=== PATIENT | male | born 1935 | race Asian ===

== ENCOUNTER 2017-10-21 23:37 | Observation (INO) | payer OTHER ==
--- NOTE | 2017-10-21 23:41 | PDOC ---
History of Present Illness - General Chief Complaint: Lethargy Stated Complaint: FEVER, LETHARGY Time Seen by Provider: 10/21/17 23:41 History Source: Patient Exam Limitations: No Limitations - History of Present Illness Initial Comments: 10/21/17 23:45 This is an 82-year-old male brought in by his family for evaluation of fever and lethargy. Patient is had a fever 2 days. Patient denies any complaints at this time however family states that he is normally active and ambulates without difficulty in the last couple days has been much less active and has been very weak in general. Patient denies any cough, congestion, chest pain, shortness of breath, nausea, vomiting, diarrhea or urinary complaints. Patient' s has a history significant for hypertension high cholesterol and diabetes. Patient sugar this evening was over 200. PAST MEDICAL HISTORY: As per history of present illness PAST SURGICAL HISTORY: no significant history FAMILY HISTORY: no pertinant history SOCIAL HISTORY: Pt lives with family and is retired MEDICATIONS: reviewed ALLERGIES: As per nursing notes Review of Systems General: + fevers or chills, + generalized weakness, no weight loss HEENT: No change in vision. No sore throat,. No ear pain CardioVascular: No chest pain or shortness of breath Respiratory:No cough, or wheezing. Gastrointestinal: no nausea, vomitting, diarrhea or constipation, No rectal bleeding Genitourinary: No dysuria, hematuria, or frequency Musculoskeletal: No joint or muscle pain or swelling Neurologic: No headache, vertigo, dizziness or loss of consciousness Psychiatric: nor depression Skin: No rashes or easy bruising Endocrine: no increased thirst or abnormal weight change Allergic: no skin or latex allergy All other systems reviewed and normal Exam: General: Well-nourished well-developed individual, no acute distress HEENT: Throat: Normal, tonsils normal, no erythema or exudate Neck: Supple, no meningeal signs, no lymphadenopathy Eyes::Pupils equal reactive and round, extraocular motion intact Chest: Nontender to palpation Cardiac: S1-S2 normal, regular rate and rhythm, no murmurs rubs or gallops Respiratory: Lungs clear to auscultation bilateral Abdomen: Soft, nondistended, normal bowel sounds, nontender to palpation diffusely Extremities: Warm, dry, no cyanosis, clubbing, or edema Skin: No rashes Neuro: Alert and oriented x3, CN II - XII intact, nonfocal exam with normal strength, normal sensation, normal reflexes, normal gait, Psych: Normal mood and affect Medical decision making this is a 82-year-old male brought in by his family for evaluation of fever and lethargy. Will obtain a workup including CBC, comp, blood cultures, urine, urine cultures , EKG, chest x-ray, lactic acid, coags We'll reassess and review results of workup 02:20 Patient feels a little better after some fluids and Tylenol and IV antibiotics. Patient's white count was normal there is no left shift however given the fact that he is a diabetic and he already has some renal insufficiency he will be in placed in an observation bed for IV antibiotics. Discussed admission with the hospitalist Jackie Lira NP who was accepted the patient for admission 10/22/17 02:21 Past History - Past Medical History Allergies/Adverse Reactions: Allergies Allergy/AdvReac Type Severity Reaction Status Date / Time levofloxacin [From Levaquin] Allergy Severe Rash Verified 07/01/14 07:27 bacitracin Allergy Verified 10/21/17 23:39 nitrofurantoin Allergy Verified 10/21/17 23:39 [From Macrobid] Home Medications: Ambulatory Orders Bimatoprost [Lumigan] 1 drop OU HS #0 drops 01/09/13 Brimonidine Tartrate [Alphagan 0.2% -] 1 drop OS BID #0 drops 01/09/13 Dorzolamide/Timolol/Pf [Cosopt Pf Eye Drops] 1 each OP BID #0 droperette Doxazosin Mesylate [Cardura] 4 mg PO DAILY #0 tablet 01/09/13 Losartan Potassium [Cozaar -] 100 mg PO HS #0 tablet 01/09/13 Pilocarpine 2% [Pilostat 2% -] 1 drop OU QID #0 drops 01/09/13 Acyclovir [Zovirax -] 400 mg PO BID 06/28/14 Aspirin [Western Aspirin] 81 mg PO DAILY 06/28/14 Glipizide [Glipizide ER] 5 mg PO BID 06/28/14 Saxagliptin HCl [Onglyza] 2.5 mg PO DAILY 06/28/14 Atorvastatin Ca [Lipitor] 10 mg PO MoWeFr@2200 10/21/17 metFORMIN HCL [Glucophage] 500 mg PO BID 10/21/17 Anemia: No Asthma: No Cancer: No Cardiac Disorders: Yes (PPM) CVA: Yes COPD: No CHF: No Dementia: No Diabetes: Yes GI Disorders: Yes (REFLUX) Disorders: Yes (BPH) HTN: Yes Hypercholesterolemia: Yes Seizures: No Thyroid Disease: No - Surgical History Abdominal Surgery: Yes (colon resection, hemicolectomy) Appendectomy: No Cholecystectomy: Yes Neurologic Surgery: No Orthopedic Surgery: Yes (RIGHT LEG - PLATE S/P FRACTURE 2000) - Immunization History Td Vaccination: Yes - Suicide/Smoking/Psychosocial Hx Smoking Status: No Smoking History: Never smoked Have you smoked in the past 12 months: No Number of Cigarettes Smoked Daily: 0 Hx Alcohol Use: No Drug/Substance Use Hx: No Substance Use Type: None Hx Substance Use Treatment: No ED Treatment Course - LABORATORY CBC & Chemistry Diagram: 10/22/17 00:55 10/22/17 00:55 *DC/Admit/Observation/Transfer Diagnosis at time of Disposition: UTI (urinary tract infection) - Discharge Dispostion Condition at time of disposition: Stable Decision to Admit order: Yes - Referrals Referrals: Rd Preciado MD [Primary Care Provider] - - Patient Instructions - Post Discharge Activity
[2017-10-21] MEDS ORDERED: SODIUM CHLORIDE 1,000 ML IV STA (23:48)
[2017-10-22 01:36] LABS: URINE APPEARANCE CLOUDY; URINE BILIRUBIN NEGATIVE (<2.0 mg/dL); URINE BLOOD 2+ (NEGATIVE); URINE COLOR YELLOW; URINE GLUCOSE (UA) 1+ (NEGATIVE); URINE KETONE TRACE (NEGATIVE); URINE NITRITE POSITIVE (NEGATIVE); URINE UROBILINOGEN NEGATIVE mg/dL (0.2-1.0)
[2017-10-22 01:41] LABS: URINE LEUK ESTERASE 2+ (NEGATIVE); URINE PROTEIN 1+ (NEGATIVE)
[2017-10-22 01:46] LABS: BASO % 0.3 % (0-2.0); EOS % 0.5 % (0-4.5); HEMATOCRIT 34.3 % (35.4-49); HEMOGLOBIN 11.4 GM/dL (11.7-16.9); LYMPH % 12.4 % (8-40); MCH 28.1 pg (25.7-33.7); MCHC 33.2 g/dl (32.0-35.9); MEAN CELL VOLUME 84.7 fl (80-96); MEAN PLT VOLUME 9.5 fl (7.5-11.1); MONO % 8.8 % (3.8-10.2); PLATELET COUNT 137 K/MM3 (134-434); RBC 4.05 M/mm3 (4.00-5.60); RDW 14.7 % (11.9-15.9); WHITE BLOOD COUNT 9.5 K/mm3 (4.0-10.0)
[2017-10-22 01:49] LABS: VENOUS PC02 37.4 mmHg (38-52); VENOUS PH 7.43 (7.32-7.42); VENOUS PO2 54.2 mmHg (28-48)
[2017-10-22] MEDS ORDERED: CEFTRIAXONE 1,000 MG in DEXTROSE 5%-WATER - 50 ML IVPB ONE (02:01)
[2017-10-22 02:03] LABS: INR 1.04 (0.82-1.09); PROTHROMBIN TIME (PATIENT) 11.8 SEC (9.7-13.0)
[2017-10-22 02:04] LABS: ALBUMIN 3.1 g/dl (3.4-5.0); ANION GAP 8 (8-16); BILIRUBIN,TOTAL 0.7 mg/dL (0.2-1.0); BLOOD UREA NITROGEN 28 mg/dL (7-18); CALCIUM 8.5 mg/dL (8.5-10.1); CHLORIDE 103 mmol/L (98-107); CO2 26 mmol/L (21-32); CREATININE 1.7 mg/dL (0.7-1.3); GLUCOSE,RANDOM 170 mg/dL (74-106); POTASSIUM 3.7 mmol/L (3.5-5.1); SGOT/AST 14 U/L (15-37); SGPT/ALT 20 U/L (12-78); SODIUM 137 mmol/L (136-145); TOT PROT 6.6 g/dl (6.4-8.2)
[2017-10-22 02:05] LABS: ALK PHOS 67 U/L (45-117)
[2017-10-22] MEDS ORDERED: cefTRIAXone SODIUM 1 GM VIAL ONE (02:10)
[2017-10-22 02:11] LABS: EPI CELLS RARE /HPF (FEW); URINE BACTERIA FEW /hpf (NONE SEEN); URINE MUCUS MODERATE
[2017-10-22] MEDS ORDERED: DEXTROSE 5%-0.45% SALINE 1,000 ML IV SCH (02:30)
[2017-10-22] MEDS ORDERED: ACETAMINOPHEN 325 MG TABLET (FP) PO PRN (02:33)
[2017-10-22 03:36] VITALS: BMI 19.8
[2017-10-22] MEDS: INSULIN SLIDING SCALE (NOVOLOG) 1 VIAL SQ SCH ×4 (06:48→21:56)
[2017-10-22 08:42] LABS: ANION GAP 7 (8-16); BLOOD UREA NITROGEN 24 mg/dl (7-18); CALCIUM 8.4 mg/dl (8.4-10.2); CHLORIDE 105 mmol/L (98-107); CO2 24 mmol/L (22-28); CREATININE 1.5 mg/dl (0.6-1.3); GLUCOSE,RANDOM 87 mg/dl (74-106); POTASSIUM 3.6 mmol/L (3.5-5.1); SODIUM 136 mmol/L (136-145)
[2017-10-22 08:49] LABS: BASO % 0.2 % (0-2.0); EOS % 1.1 % (0-4.5); HEMATOCRIT 33.6 % (35.4-49); HEMOGLOBIN 11.2 GM/dl (11.7-16.9); LYMPH % 12.1 % (8-40); MCH 28.3 pg (25.7-33.7); MCHC 33.2 g/dl (32.0-35.9); MEAN CELL VOLUME 85.2 fl (80-96); MEAN PLT VOLUME 9.2 fl (7.5-11.1); MONO % 8.9 % (3.8-10.2); NEUT % 77.7 % (42.8-82.8); PLATELET COUNT 137 K/MM3 (134-434); RBC 3.95 M/mm3 (4.00-5.60); RDW 13.9 % (11.9-15.9); WHITE BLOOD COUNT 10.3 K/mm3 (4.0-10.8)
[2017-10-22] MEDS: ACYCLOVIR 400 MG TABLET PO SCH ×2 (11:23→21:49)
[2017-10-22] MEDS: ASPIRIN COATED 81 MG TABLET.EC PO SCH (11:23)
[2017-10-22] MEDS: HEPARIN NA (PORCINE) 5,000 UNITS/ML 1ML VIAL SQ SCH ×2 (11:33→21:49)
[2017-10-22] MEDS: PILOCARPINE 2% OPHTHALMIC SOLUTION 15 ML BOTTLE OU SCH ×4 (11:33→21:48)
[2017-10-22] MEDS: BRIMONIDINE TARTRATE 0.2% OPHTHALMIC 5 ML BOTTLE OS SCH ×2 (11:33→21:48)
[2017-10-22] MEDS: DOXAZOSIN MESYLATE 4 MG TABLET PO SCH (11:35)
--- NOTE | 2017-10-22 11:44 | HP ---
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 The patient's response to all questions was "I am not worrying about it". Was unable to provide any details of the difficulty ambulating, however he does report it has resolved. ER course was notable for: (1) Temp 100.6, pulse 94, BP 110/54, resp 16, O2 95% on RA (2) Chest X-ray with no acute pathology (3) UA + for UTI Recent Travel: denies PAST MEDICAL HISTORY: as above PAST SURGICAL HISTORY: "So many surgeries I can't think about them" Social History: Smoking: denies Alcohol: denies Drugs: denies Family History: Allergies levofloxacin [From Levaquin] Allergy (Severe, Verified 07/01/14 07:27) Rash bacitracin Allergy (Verified 10/21/17 23:39) nitrofurantoin [From Macrobid] Allergy (Verified 10/21/17 23:39) HOME MEDICATIONS: Home Medications Medication Instructions Recorded Bimatoprost [Lumigan] 1 drop OU HS #0 drops 01/09/13 Brimonidine Tartrate [Alphagan 1 drop OS BID #0 drops 01/09/13 0.2% -] Dorzolamide/Timolol/Pf [Cosopt Pf 1 each OP BID #0 droperette 01/09/13 Eye Drops] Doxazosin Mesylate [Cardura] 4 mg PO DAILY #0 tablet 01/09/13 Losartan Potassium [Cozaar -] 100 mg PO HS #0 tablet 01/09/13 Pilocarpine 2% [Pilostat 2% -] 1 drop OU QID #0 drops 01/09/13 Acyclovir [Zovirax -] 400 mg PO BID 06/28/14 Glipizide [Glipizide ER] 5 mg PO BID 06/28/14 Saxagliptin HCl [Onglyza] 2.5 mg PO DAILY 06/28/14 Atorvastatin Ca [Lipitor] 10 mg PO MoWeFr@2200 10/21/17 metFORMIN HCL [Glucophage] 500 mg PO BID 10/21/17 Aspirin [ASA -] 81 mg PO DAILY 10/22/17 Tamsulosin HCl [Flomax] 0.4 mg PO DAILY 10/22/17 REVIEW OF SYSTEMS: Patient gave limited ROS NEUROLOGIC: Was unable to ambulate because "my legs hurt and I couldn't feel them". Symptoms have resolved PHYSICAL EXAMINATION Vital Signs - 24 hr 10/21/17 10/22/17 10/22/17 23:46 02:57 04:10 Temperature 100.6 F H 98.6 F 98 F Pulse Rate 94 H 81 Pulse Rate [ 75 Radial] Respiratory 16 16 18 Rate Blood Pressure 110/54 124/53 Blood Pressure 111/56 [Arm] O2 Sat by Pulse 95 97 97 Oximetry (%) 10/22/17 10/22/17 10/22/17 05:00 07:04 08:33 Temperature 97.7 F Pulse Rate 92 H Pulse Rate [ Radial] Respiratory 18 Rate Blood Pressure 128/46 Blood Pressure [Arm] O2 Sat by Pulse 98 98 Oximetry (%) GENERAL: Awake, alert, in no acute distress. HEAD: Normal with no signs of trauma. Patient refused exam stating "when my gets here, come back" Laboratory Results - last 24 hr 10/22/17 10/22/17 10/22/17 00:40 00:55 00:55 WBC 9.5 RBC 4.05 Hgb 11.4 L Hct 34.3 L MCV 84.7 MCH 28.1 MCHC 33.2 RDW 14.7 Plt Count 137 D MPV 9.5 D Absolute Neuts (auto) 7.4 Neutrophils % 78.0 Lymphocytes % 12.4 D Monocytes % 8.8 Eosinophils % 0.5 Basophils % 0.3 Nucleated RBC % 0 PT with INR 11.80 INR 1.04 VBG pH POC VBG pCO2 POC VBG pO2 Mixed VBG HCO3 Sodium Potassium Chloride Carbon Dioxide Anion Gap BUN Creatinine Creat Clearance w eGFR POC Glucometer Random Glucose Lactic Acid Calcium Total Bilirubin AST ALT Alkaline Phosphatase Creatine Kinase Troponin I Total Protein Albumin Urine Color Yellow Urine Appearance Cloudy Urine pH 5.0 Ur Specific [place] 1.012 Urine Protein 1+ H Urine Glucose (UA) 1+ H Urine Ketones Trace H Urine Blood 2+ H Urine Nitrite Positive Urine Bilirubin Negative Urine Urobilinogen Negative Ur Leukocyte Esterase 2+ H Urine WBC (Auto) 227 Urine RBC (Auto) 5 Ur Epithelial Cells Rare Urine Bacteria Few Urine Mucus Moderate 10/22/17 10/22/17 10/22/17 00:55 00:55 00:55 WBC RBC Hgb Hct MCV MCH MCHC RDW Plt Count MPV Absolute Neuts (auto) Neutrophils % Lymphocytes % Monocytes % Eosinophils % Basophils % Nucleated RBC % PT with INR INR VBG pH 7.43 H POC VBG pCO2 37.4 L POC VBG pO2 54.2 H Mixed VBG HCO3 24.2 Sodium 137 Potassium 3.7 Chloride 103 Carbon Dioxide 26 Anion Gap 8 BUN 28 H D Creatinine 1.7 H D Creat Clearance w eGFR 38.88 POC Glucometer Random Glucose 170 H D Lactic Acid 1.6 Calcium 8.5 Total Bilirubin 0.7 D AST 14 L D ALT 20 D Alkaline Phosphatase 67 D Creatine Kinase Troponin I Total Protein 6.6 Albumin 3.1 L Urine Color Urine Appearance Urine pH Ur Specific [place] Urine Protein Urine Glucose (UA) Urine Ketones Urine Blood Urine Nitrite Urine Bilirubin Urine Urobilinogen Ur Leukocyte Esterase Urine WBC (Auto) Urine RBC (Auto) Ur Epithelial Cells Urine Bacteria Urine Mucus 10/22/17 10/22/17 10/22/17 00:55 06:15 07:15 WBC 10.3 RBC 3.95 L Hgb 11.2 L Hct 33.6 L MCV 85.2 MCH 28.3 MCHC 33.2 RDW 13.9 Plt Count 137 MPV 9.2 Absolute Neuts (auto) 8.1 Neutrophils % 77.7 Lymphocytes % 12.1 Monocytes % 8.9 Eosinophils % 1.1 Basophils % 0.2 Nucleated RBC % PT with INR INR VBG pH POC VBG pCO2 POC VBG pO2 Mixed VBG HCO3 Sodium Potassium Chloride Carbon Dioxide Anion Gap BUN Creatinine Creat Clearance w eGFR POC Glucometer 88 Random Glucose Lactic Acid Calcium Total Bilirubin AST ALT Alkaline Phosphatase Creatine Kinase 80 Troponin I < 0.02 Total Protein Albumin Urine Color Urine Appearance Urine pH Ur Specific [place] Urine Protein Urine Glucose (UA) Urine Ketones Urine Blood Urine Nitrite Urine Bilirubin Urine Urobilinogen Ur Leukocyte Esterase Urine WBC (Auto) Urine RBC (Auto) Ur Epithelial Cells Urine Bacteria Urine Mucus 10/22/17 07:15 WBC RBC Hgb Hct MCV MCH MCHC RDW Plt Count MPV Absolute Neuts (auto) Neutrophils % Lymphocytes % Monocytes % Eosinophils % Basophils % Nucleated RBC % PT with INR INR VBG pH POC VBG pCO2 POC VBG pO2 Mixed VBG HCO3 Sodium 136 Potassium 3.6 Chloride 105 Carbon Dioxide 24 Anion Gap 7 L BUN 24 H Creatinine 1.5 H Creat Clearance w eGFR POC Glucometer Random Glucose 87 Lactic Acid Calcium 8.4 Total Bilirubin AST ALT Alkaline Phosphatase Creatine Kinase Troponin I Total Protein Albumin Urine Color Urine Appearance Urine pH Ur Specific [place] Urine Protein Urine Glucose (UA) Urine Ketones Urine Blood Urine Nitrite Urine Bilirubin Urine Urobilinogen Ur Leukocyte Esterase Urine WBC (Auto) Urine RBC (Auto) Ur Epithelial Cells Urine Bacteria Urine Mucus Assessment: This is an 82 year old male with PMHx of CAD, 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 Plan: 1) Sepsis 2/2 UTI - Continue Ceftriaxone - Follow cultures - Monitor for fever 2) Difficulty ambulating - Weakness 2/2 sepsis? - F/u PT consult, patient denies any weakness now stating symptoms have resolved 3) CHARLY - 2/2 UTI? - F/u kidney ultrasound to r/o obstruction - Continue to trend Cr - Hold ARB until kidney function improves 4) CAD - Continue home medications 5) DM - BGM ACHS - ISS ACHS 6) F/E/N: - Monitor electrolytes - Diabetic, sodium controlled diet 7) Prophylaxis: - SCDs bilaterally - PT evaluation 8) Dispo: - Once urine culture results CODE STATUS: FULL CODE Visit type - Emergency Visit Emergency Visit: Yes ED Registration Date: 10/22/17 Care time: The patient presented to the Emergency Department on the above date and was hospitalized for further evaluation of their emergent condition. - New Patient This patient is new to me today: Yes Date on this admission: 10/22/17 - Critical Care Critical Care patient: No Hospitalist Screening - Colonoscopy Questionnaire Colonoscopy Questionnaire: Colonoscopy Questionnaire - Patient: 50 - 75 years old and never had a screening colonoscopy: Unknown History of colon or rectal polyps, or CA: Unknown History of IBD, Crohn's disease or UC: Unknown History of abdominal radiation therapy as a child: Unknown - Relative: 1 with colon or rectal CA, or polyps at age 60 or younger: Unknown Colon or rectal CA diagnosed at age 45 or younger: Unknown Multiple relatives with colon or rectal CA: Unknown - Outcome: Screening Result: Negative Screen
[2017-10-22] MEDS ORDERED: PT OWN MED DRAWER 7, Y5N ONE ×3 (12:28→21:36)
--- NOTE | 2017-10-22 14:45 | EKG ---
Test Reason : Blood Pressure : / mmHG Vent. Rate : 081 BPM Atrial Rate : 081 BPM P-R Int : 110 ms QRS Dur : 174 ms QT Int : 444 ms P-R-T Axes : 066 -85 089 degrees QTc Int : 515 ms Atrial-sensed ventricular-paced rhythm ABNORMAL ECG WHEN COMPARED WITH ECG OF 30-JAN-2016 12:22, VENT. RATE HAS INCREASED BY 8 BPM Confirmed by MD Myron, Jack ([id number]) on 10/22/2017 2:44:56 PM Referred By: MD SARGENT Confirmed By:Jack Sanches MD
[2017-10-22] MEDS ORDERED: INSULIN (NOVOLOG) ASPART 100 UNITS/ML 10ML VIAL ONE (16:04)
[2017-10-22] MEDS: LATANOPROST 0.005% OPHTH SOLN 2.5ML BOTTLE OU SCH (21:49)
[2017-10-22] MEDS ORDERED: LOSARTAN POTASSIUM 50 MG TABLET (FP) PO SCH (22:00)
[2017-10-23] MEDS: INSULIN SLIDING SCALE (NOVOLOG) 1 VIAL SQ SCH ×4 (07:04→21:46)
[2017-10-23] MEDS ORDERED: PT OWN MED DRAWER 7, Y5N ONE ×8 (09:15→21:39)
[2017-10-23 09:23] LABS: ANION GAP 8 (8-16); BLOOD UREA NITROGEN 20 mg/dl (7-18); CALCIUM 8.7 mg/dl (8.4-10.2); CHLORIDE 103 mmol/L (98-107); CO2 25 mmol/L (22-28); CREATININE 1.6 mg/dl (0.6-1.3); GLUCOSE,RANDOM 99 mg/dl (74-106); MAGNESIUM 1.5 mg/dL (1.8-2.4); PHOSPHOROUS 2.8 mg/dl (2.5-4.6); POTASSIUM 3.7 mmol/L (3.5-5.1); SODIUM 136 mmol/L (136-145)
[2017-10-23] MEDS: HEPARIN NA (PORCINE) 5,000 UNITS/ML 1ML VIAL SQ SCH ×2 (09:25→21:23)
[2017-10-23] MEDS: ASPIRIN COATED 81 MG TABLET.EC PO SCH (09:25)
[2017-10-23] MEDS: CEFTRIAXONE 1 G/50 ML PREMIX 50 ML IVPB SCH (09:25)
[2017-10-23] MEDS: PILOCARPINE 2% OPHTHALMIC SOLUTION 15 ML BOTTLE OU SCH ×4 (09:26→21:22)
[2017-10-23] MEDS: BRIMONIDINE TARTRATE 0.2% OPHTHALMIC 5 ML BOTTLE OS SCH ×2 (09:27→21:21)
[2017-10-23] MEDS: ACYCLOVIR 400 MG TABLET PO SCH ×2 (09:28→21:23)
[2017-10-23] MEDS: DOXAZOSIN MESYLATE 4 MG TABLET PO SCH (09:29)
[2017-10-23] MEDS ORDERED: MAGNESIUM OXIDE 400 MG TABLET (FP) PO ONE (10:30)
--- NOTE | 2017-10-23 12:50 | PN ---
Progress Note (short form) - Note Progress Note: Subjective: The patient was seen and examined at the bedside, he has no complaints at this time. Current Medications Generic Name Dose Route Start Last Admin Trade Name Parvin PRN Reason Stop Dose Admin Acetaminophen 650 mg 10/22/17 02:33 Tylenol - PO Q6H PRN FEVER Acyclovir 400 mg 10/22/17 10:00 10/23/17 09:28 Zovirax - PO 400 mg BID REN Administration Aspirin 81 mg 10/22/17 10:00 10/23/17 09:25 Ecotrin - PO 81 mg DAILY REN Administration Atorvastatin Calcium 10 mg 10/24/17 22:00 Lipitor - PO MoWeFr@2200 REN Brimonidine Tartrate 1 drop 10/22/17 10:00 10/23/17 09:27 Alphagan 0.2% - OS 1 drop BID REN Administration Doxazosin Mesylate 4 mg 10/22/17 10:00 10/23/17 09:29 Cardura - PO 4 mg DAILY REN Administration Heparin Sodium (Porcine) 5,000 unit 10/22/17 10:00 10/23/17 09:25 Heparin - SQ 5,000 unit BID REN Administration Ceftriaxone Sodium 50 mls @ 100 mls/hr 10/23/17 10:00 10/23/17 09:25 Ceftriaxone 1 Gm-D5w Bag IVPB 100 mls/hr DAILY REN Administration Protocol Insulin Aspart 1 vial 10/22/17 07:00 10/23/17 12:20 Novolog Vial Sliding Scale - SQ 2 units ACHS REN Administration Protocol Latanoprost 1 drop 10/22/17 22:00 10/22/17 21:49 Xalatan 0.005% Eye Drops - OU 1 drop HS REN Administration Losartan Potassium 100 mg 10/22/17 22:00 Cozaar - PO HS REN Pilocarpine HCl 1 drop 10/22/17 10:00 10/23/17 09:26 Pilostat 2% - OU 1 drop QID REN Administration Objective: Vital Signs Period Temp Pulse Resp BP Sys/Stevens Pulse Ox Last 24 Hr 97.9 F-99.4 F 75-90 17-18 128-148/46-64 97-100 Physical Exam: CBCD WBC 10.3 K/mm3 (4.0-10.8) 10/22/17 07:15 RBC 3.95 M/mm3 (4.00-5.60) L 10/22/17 07:15 Hgb 11.2 GM/dl (11.7-16.9) L 10/22/17 07:15 Hct 33.6 % (35.4-49) L 10/22/17 07:15 MCV 85.2 fl (80-96) 10/22/17 07:15 MCHC 33.2 g/dl (32.0-35.9) 10/22/17 07:15 RDW 13.9 % (11.9-15.9) 10/22/17 07:15 Plt Count 137 K/MM3 (134-434) 10/22/17 07:15 MPV 9.2 fl (7.5-11.1) 10/22/17 07:15 CMP Sodium 136 mmol/L (136-145) 10/23/17 06:00 Potassium 3.7 mmol/L (3.5-5.1) 10/23/17 06:00 Chloride 103 mmol/L (98-107) 10/23/17 06:00 Carbon Dioxide 25 mmol/L (22-28) 10/23/17 06:00 Anion Gap 8 (8-16) 10/23/17 06:00 BUN 20 mg/dl (7-18) H 10/23/17 06:00 Creatinine 1.6 mg/dl (0.6-1.3) H 10/23/17 06:00 Creat Clearance w eGFR 38.88 (>60) 10/22/17 00:55 Random Glucose 99 mg/dl (74-106) 10/23/17 06:00 Calcium 8.7 mg/dl (8.4-10.2) 10/23/17 06:00 Total Bilirubin 0.7 mg/dL (0.2-1.0) D 10/22/17 00:55 AST 14 U/L (15-37) L D 10/22/17 00:55 ALT 20 U/L (12-78) D 10/22/17 00:55 Alkaline Phosphatase 67 U/L (45-117) D 10/22/17 00:55 Total Protein 6.6 g/dl (6.4-8.2) 10/22/17 00:55 Albumin 3.1 g/dl (3.4-5.0) L 10/22/17 00:55 CARDIAC ENZYMES Creatine Kinase 80 IU/L (39-308) 10/22/17 00:55 Troponin I < 0.02 ng/ml (0.00-0.05) 10/22/17 00:55 Microbiology 10/22/17 00:40 Urine - Urine Clean Catch Urine Culture - Preliminary Lactose Fermenting Neg Bacilli 10/22/17 00:05 Blood - Peripheral Venous Blood Culture - Preliminary NO GROWTH OBTAINED AFTER 24 HOURS, INCUBATION TO CONTINUE FOR 4 DAYS. 10/22/17 00:05 Blood - Peripheral Venous Blood Culture - Preliminary NO GROWTH OBTAINED AFTER 24 HOURS, INCUBATION TO CONTINUE FOR 4 DAYS. 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 Plan: 1) Sepsis 2/2 UTI - Continue Ceftriaxone - Awaiting final c/s - Monitor for fever 2) Difficulty ambulating - Weakness 2/2 sepsis? - Resolved - Patient seen ambulating around his room with a walker 3) CHARLY on possible CKD? - Kidney ultrasound: b/l mildly atrophic kidneys with caliectasis. No donnell hydronephrosis - Continue to trend Cr - Hold ARB until kidney function improves - F/u nephrology consult 4) CAD - Continue home medications 5) DM - BGM ACHS - ISS ACHS 6) F/E/N: - Monitor electrolytes - Diabetic, sodium controlled diet 7) Prophylaxis: - SCDs bilaterally - PT evaluation 8) Dispo: - Once urine culture results CODE STATUS: FULL CODE Visit type - Emergency Visit Emergency Visit: Yes ED Registration Date: 10/22/17 Care time: The patient presented to the Emergency Department on the above date and was hospitalized for further evaluation of their emergent condition. - New Patient This patient is new to me today: No - Critical Care Critical Care patient: No
--- NOTE | 2017-10-23 12:50 | CONSULT ---
Consult Referred by:: Nephrology Corky Davidson/Manav Reason for Consultation:: Abnormal kidney functions - History of Present Illness History of Present Illness: This is an 82-year-old male brought in by his family for evaluation of fever and lethargy. Patient is had a fever 2 days. Patient denies any cough, congestion, chest pain, shortness of breath, nausea, vomiting, diarrhea or urinary complaints. Patient's has a history significant for hypertension high cholesterol and diabetes. He also has h/o ICH. - History Source History Provided By: Patient - Past Medical History [employer]IGH [employer]: Yes: Other (ICH) Cardio/Vascular: Yes: HTN Renal/: Yes: Renal Inusuff, BPH, UTI Endocrine: Yes: Diabetes Mellitus - Alcohol/Substance Use Hx Alcohol Use: No - Smoking History Smoking history: Never smoked Have you smoked in the past 12 months: No Aproximately how many cigarettes per day: 0 - Social History ADL: Family Assistance History of Recent Travel: No Home Medications - Allergies Allergies/Adverse Reactions: Allergies Allergy/AdvReac Type Severity Reaction Status Date / Time levofloxacin [From Levaquin] Allergy Severe Rash Verified 07/01/14 07:27 bacitracin Allergy Verified 10/21/17 23:39 nitrofurantoin Allergy Verified 10/21/17 23:39 [From Macrobid] - Home Medications Home Medications: Ambulatory Orders Bimatoprost [Lumigan] 1 drop OU HS #0 drops 01/09/13 Brimonidine Tartrate [Alphagan 0.2% -] 1 drop OS BID #0 drops 01/09/13 Dorzolamide/Timolol/Pf [Cosopt Pf Eye Drops] 1 each OP BID #0 droperette Doxazosin Mesylate [Cardura] 4 mg PO DAILY #0 tablet 01/09/13 Losartan Potassium [Cozaar -] 100 mg PO HS #0 tablet 01/09/13 [place]oc[place] 2% [Pilostat 2% -] 1 drop OU QID #0 drops 01/09/13 Acyclovir [Zovirax -] 400 mg PO BID 06/28/14 Glipizide [Glipizide ER] 5 mg PO BID 06/28/14 Saxagliptin HCl [Onglyza] 2.5 mg PO DAILY 06/28/14 Atorvastatin Ca [Lipitor] 10 mg PO MoWeFr@2200 10/21/17 metFORMIN HCL [Glucophage] 500 mg PO BID 10/21/17 Aspirin [ASA -] 81 mg PO DAILY 10/22/17 Tamsulosin HCl [Flomax] 0.4 mg PO DAILY 10/22/17 Review of Systems - Review of Systems Constitutional: reports: No Symptoms, Fever, Loss of Appetite, Malaise HENT: denies: Difficult Swallowing Cardiovascular: denies: Chest Pain, Palpitations, Shortness of Breath Respiratory: denies: Cough, SOB on Exertion Gastrointestinal: denies: Melena Genitourinary: denies: Dysuria, Flank Pain, Frequency Musculoskeletal: reports: Back Pain Neurological: reports: Confusion, Unsteady Gait, Weakness. denies: No Symptoms Physical Exam Vital Signs: Vital Signs Temperature 97.9 F 10/23/17 09:13 Pulse Rate 77 10/23/17 09:13 Respiratory Rate 17 10/23/17 09:13 Blood Pressure 136/46 10/23/17 09:13 O2 Sat by Pulse Oximetry (%) 100 10/23/17 09:13 Constitutional: Yes: No Distress, Anxious Eyes: Yes: Conjunctiva Clear HENT: Yes: Normocephalic Neck: Yes: Trachea Midline Cardiovascular: Yes: S1, S2 Respiratory: Yes: CTA Bilaterally, Diminished Gastrointestinal: Yes: Normal Bowel Sounds, Soft Renal/: No: CVA Tenderness - Left, CVA Tenderness - Right Musculoskeletal: Yes: Back Pain, Muscle Weakness Extremities: No: Calf Tenderness Neurological: Yes: Alert, Oriented, Unsteady Gait, Weakness Labs: CBC, BMP 10/22/17 07:15 10/23/17 06:00 Problem List - Problems (1) UTI (urinary tract infection) Code(s): N39.0 - URINARY TRACT INFECTION, SITE NOT SPECIFIED Qualifiers: (2) Altered mental status Code(s): R41.82 - ALTERED MENTAL STATUS, UNSPECIFIED Qualifiers: Altered mental status type: unspecified Qualified Code(s): R41.82 - Altered mental status, unspecified (3) Anemia Code(s): D64.9 - ANEMIA, UNSPECIFIED (4) CKD (chronic kidney disease) Code(s): N18.9 - CHRONIC KIDNEY DISEASE, UNSPECIFIED (5) Hypertension Code(s): I10 - ESSENTIAL (PRIMARY) HYPERTENSION (6) Intracranial hemorrhage Code(s): I62.9 - NONTRAUMATIC INTRACRANIAL HEMORRHAGE, UNSPECIFIED Assessment/Plan This is an 82-year-old male brought in by his family for evaluation of fever and lethargy. The patient being treated for acute UTI. 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 Concur with the IV hydration and IV antibiotics. Will monitor the renal functions with you. No specific intervention warranted at this time. Thank you. Will follow with you. Miri Davidson MD
[2017-10-23] MEDS: LATANOPROST 0.005% OPHTH SOLN 2.5ML BOTTLE OU SCH (21:22)
[2017-10-24] MEDS: INSULIN SLIDING SCALE (NOVOLOG) 1 VIAL SQ SCH ×2 (06:15→11:12)
[2017-10-24] MEDS ORDERED: PT OWN MED DRAWER 7, Y5N ONE (09:30)
[2017-10-24] MEDS: CEFTRIAXONE 1 G/50 ML PREMIX 50 ML IVPB SCH (09:36)
[2017-10-24] MEDS: HEPARIN NA (PORCINE) 5,000 UNITS/ML 1ML VIAL SQ SCH (09:36)
[2017-10-24] MEDS: ACYCLOVIR 400 MG TABLET PO SCH (09:36)
[2017-10-24] MEDS: DOXAZOSIN MESYLATE 4 MG TABLET PO SCH (09:36)
[2017-10-24] MEDS: ASPIRIN COATED 81 MG TABLET.EC PO SCH (09:36)
[2017-10-24 09:39] LABS: ALBUMIN 2.9 g/dl (3.5-5.0); ALK PHOS 61 U/L (32-92); ANION GAP 7 (8-16); BILIRUBIN,TOTAL 0.8 mg/dl (0.2-1.0); BLOOD UREA NITROGEN 16 mg/dl (7-18); CALCIUM 8.9 mg/dl (8.4-10.2); CHLORIDE 104 mmol/L (98-107); CO2 25 mmol/L (22-28); CREATININE 1.4 mg/dl (0.6-1.3); GLUCOSE,RANDOM 145 mg/dl (74-106); MAGNESIUM 1.6 mg/dL (1.8-2.4); POTASSIUM 3.5 mmol/L (3.5-5.1); SGOT/AST 18 U/L (10-42); SGPT/ALT 15 U/L (10-40); SODIUM 136 mmol/L (136-145); TOT PROT 6.3 g/dl (6.4-8.3)
[2017-10-24] MEDS: BRIMONIDINE TARTRATE 0.2% OPHTHALMIC 5 ML BOTTLE OS SCH (09:56)
[2017-10-24] MEDS: PILOCARPINE 2% OPHTHALMIC SOLUTION 15 ML BOTTLE OU SCH ×2 (09:56→14:46)
[2017-10-24] MEDS ORDERED: MAGNESIUM 1GM/D5W 100ML - 100 ML IVPB IVPB ONE (10:04)
--- NOTE | 2017-10-24 10:40 | DS ---
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 The patient's response to all questions was "I am not worrying about it". Was unable to provide any details of the difficulty ambulating, however he does report it has resolved. ER course was notable for: (1) Temp 100.6, pulse 94, BP 110/54, resp 16, O2 95% on RA (2) Chest X-ray with no acute pathology (3) UA + for UTI Vital Signs Period Temp Pulse Resp BP Sys/Stevens Pulse Ox Last 24 Hr 97.7 F-99.2 F 74-89 17-20 125-169/56-70 96-99 PHYSICAL EXAM GENERAL: The patient is awake, alert, and fully oriented, in no acute distress. HEAD: Normal with no signs of trauma. EYES: PERRL, extraocular movements intact, sclera anicteric, conjunctiva clear. ENT: Ears normal, nares patent, oropharynx clear without exudates, moist mucous membranes. NECK: Trachea midline, full range of motion, supple. LUNGS: Breath sounds equal, clear to auscultation bilaterally, no wheezes, no crackles, no accessory muscle use. HEART: Regular rate and rhythm, S1, S2 without murmur, rub or gallop. ABDOMEN: Soft, nontender, nondistended, normoactive bowel sounds, no guarding, no rebound, no hepatosplenomegaly, no masses. EXTREMITIES: 2+ pulses, warm, well-perfused, no edema. NEUROLOGICAL: Cranial nerves II through XII grossly intact. Normal speech, gait not observed. PSYCH: Normal mood, normal affect. SKIN: Warm, dry, normal turgor, no rashes or lesions noted. LABS Laboratory Results - last 24 hr 10/23/17 10/23/17 10/23/17 11:27 16:57 21:06 Sodium Potassium Chloride Carbon Dioxide Anion Gap BUN Creatinine Creat Clearance w eGFR POC Glucometer 188 183 168 Random Glucose Calcium Magnesium Total Bilirubin AST ALT Alkaline Phosphatase Total Protein Albumin 10/24/17 10/24/17 06:01 07:50 Sodium 136 Potassium 3.5 Chloride 104 Carbon Dioxide 25 Anion Gap 7 L BUN 16 Creatinine 1.4 H Creat Clearance w eGFR 48.64 POC Glucometer 122 Random Glucose 145 H D Calcium 8.9 Magnesium 1.6 L Total Bilirubin 0.8 AST 18 ALT 15 Alkaline Phosphatase 61 Total Protein 6.3 L Albumin 2.9 L Microbiology 10/22/17 00:40 Urine - Urine Clean Catch Urine Culture - Final Klebsiella Pneumoniae 10/22/17 00:05 Blood - Peripheral Venous Blood Culture - Preliminary NO GROWTH OBTAINED AFTER 48 HOURS, INCUBATION TO CONTINUE FOR 3 DAYS. 10/22/17 00:05 Blood - Peripheral Venous Blood Culture - Preliminary NO GROWTH OBTAINED AFTER 48 HOURS, INCUBATION TO CONTINUE FOR 3 DAYS. IMAGING ULTRASOUND OF THE KIDNEY RENAL ULTRASOUND: BILATERAL MILDLY ATROPHIC KIDNEYS WITH CALICTASIS, NO LISA HYDRONEPHROSIS cHEST X-RAY NO ACUTE PATHOLOGY HOSPITAL COURSE: patient was admitted to the emergency department to observation. Sepsis was ruled out. Patient was noted to have a urinary tract infection and treated with rocephin throughout admission, urine culture is notable as above. No leukocytosis patient is afebrile. patient ambulated with physical therapy, patient will receive VNS. patient ambulated in room with walker. patient was noted to have acute on chronic renal failure a secondary to hypovolemia, creatinine return close to baseline upon IV hydration. Dr. Mitchell diabetologist was consulted and followed patient throughout admission. Ultrasound of kidney and bladder was notable as above. Patient has a past medical history of coronary artery disease home medications was continued. PLAN - discharge home with visiting nurse services - ceftin 250mg (renal dose) daily for 7 days Date of Admission:10/22/17 Date of Discharge: 10/24/17 Minutes to complete discharge: 45 Discharge Summary Reason For Visit: UROSEPSIS Current Active Problems UTI (urinary tract infection) (Acute) Condition: Stable - Instructions Referrals: Rd Preciado MD [Primary Care Provider] - 1 Week (repeat urinalysis and urine culture ) Disposition: HOME - Home Medications Comprehensive Discharge Medication List: Ambulatory Orders Bimatoprost [Lumigan] 1 drop OU HS #0 drops 01/09/13 Brimonidine Tartrate [Alphagan 0.2% -] 1 drop OS BID #0 drops 01/09/13 Dorzolamide/Timolol/Pf [Cosopt Pf Eye Drops] 1 each OP BID #0 droperette Doxazosin Mesylate [Cardura] 4 mg PO DAILY #0 tablet 01/09/13 Losartan Potassium [Cozaar -] 100 mg PO HS #0 tablet 01/09/13 Pilocarpine 2% [Pilostat 2% -] 1 drop OU QID #0 drops 01/09/13 Acyclovir [Zovirax -] 400 mg PO BID 06/28/14 Glipizide [Glipizide ER] 5 mg PO BID 06/28/14 Saxagliptin HCl [Onglyza] 2.5 mg PO DAILY 06/28/14 Atorvastatin Ca [Lipitor] 10 mg PO MoWeFr@2200 10/21/17 metFORMIN HCL [Glucophage] 500 mg PO BID 10/21/17 Aspirin [ASA -] 81 mg PO DAILY 10/22/17 Tamsulosin HCl [Flomax] 0.4 mg PO DAILY 10/22/17
--- NOTE | 2017-10-24 13:07 | PN ---
Progress Note, Physician Chief Complaint: The patient seen in his room. Reports feeling better. No dysuria, no chest pain. Eager to go home. History of Present Illness: This is an 82-year-old male brought in by his family for evaluation of fever and lethargy. . Patient denies any cough, congestion, chest pain, shortness of breath, nausea, vomiting, diarrhea or urinary complaints. Patient's has a history of hypertension, high cholesterol and diabetes. He also has h/o ICH. - Current Medication List Current Medications: Active Medications Acetaminophen (Tylenol -) 650 mg PO Q6H PRN PRN Reason: FEVER Last Admin: 10/23/17 19:52 Dose: 650 mg Acyclovir (Zovirax -) 400 mg PO BID [facility] Last Admin: 10/24/17 09:36 Dose: 400 mg Aspirin (Ecotrin -) 81 mg PO DAILY [facility] Last Admin: 10/24/17 09:36 Dose: 81 mg Atorvastatin Calcium (Lipitor -) 10 mg PO MoWeFr@2200 [facility] Brimonidine Tartrate (Alphagan 0.2% -) 1 drop OS BID [facility] Last Admin: 10/24/17 09:56 Dose: 1 drop Doxazosin Mesylate (Cardura -) 4 mg PO DAILY [facility] Last Admin: 10/24/17 09:36 Dose: 4 mg Heparin Sodium (Porcine) (Heparin -) 5,000 unit SQ BID [facility] Last Admin: 10/24/17 09:36 Dose: 5,000 unit Ceftriaxone Sodium (Ceftriaxone 1 Gm-D5w Bag) 50 mls @ 100 mls/hr IVPB DAILY [facility]; Protocol Last Admin: 10/24/17 09:36 Dose: 100 mls/hr Insulin Aspart (Novolog Vial Sliding Scale -) 1 vial SQ ACHS [facility]; Protocol Last Admin: 10/24/17 11:12 Dose: 8 units Latanoprost (Xalatan 0.005% Eye Drops -) 1 drop OU HS [facility] Last Admin: 10/23/17 21:22 Dose: 1 drop Losartan Potassium (Cozaar -) 100 mg PO HS [facility] Pilocarpine HCl (Pilostat 2% -) 1 drop OU QID [facility] Last Admin: 10/24/17 09:56 Dose: Not Given - Objective Vital Signs: Vital Signs Temperature 97.7 F 10/24/17 08:35 Pulse Rate 89 10/24/17 08:35 Respiratory Rate 20 10/24/17 08:35 Blood Pressure 169/70 10/24/17 08:35 O2 Sat by Pulse Oximetry (%) 99 10/24/17 08:35 Constitutional: Yes: Calm, Anxious Eyes: Yes: Conjunctiva Clear HENT: Yes: Normocephalic Neck: Yes: Trachea Midline Cardiovascular: Yes: S1, S2 Respiratory: Yes: CTA Bilaterally, Diminished, Rales Gastrointestinal: Yes: Normal Bowel Sounds, Soft Genitourinary: No: CVA Tenderness - Left, CVA Tenderness - Right Musculoskeletal: Yes: Joint Stiffness Edema: No Neurological: Yes: Alert, Oriented Labs: CBC, BMP 10/24/17 07:50 INR, PTT INR 1.04 (0.82-1.09) 10/22/17 00:55 Problem List - Problems (1) UTI (urinary tract infection) Code(s): N39.0 - URINARY TRACT INFECTION, SITE NOT SPECIFIED Qualifiers: (2) Altered mental status Code(s): R41.82 - ALTERED MENTAL STATUS, UNSPECIFIED Qualifiers: Altered mental status type: unspecified Qualified Code(s): R41.82 - Altered mental status, unspecified (3) Anemia Code(s): D64.9 - ANEMIA, UNSPECIFIED (4) CKD (chronic kidney disease) Code(s): N18.9 - CHRONIC KIDNEY DISEASE, UNSPECIFIED (5) Hypertension Code(s): I10 - ESSENTIAL (PRIMARY) HYPERTENSION (6) Intracranial hemorrhage Code(s): I62.9 - NONTRAUMATIC INTRACRANIAL HEMORRHAGE, UNSPECIFIED Assessment/Plan This is an 82-year-old male brought in by his family for evaluation of fever and lethargy. The patient being treated for acute UTI. 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 The patient will be followed up as outpatient when discharged. Thank you. Miri Davidson MD
[2017-10-24 13:08] LABS: BASO % 0.3 % (0-2.0); EOS % 2.8 % (0-4.5); HEMATOCRIT 34.4 % (35.4-49); HEMOGLOBIN 11.7 GM/dl (11.7-16.9); LYMPH % 21.5 % (8-40); MCH 28.4 pg (25.7-33.7); MCHC 33.9 g/dl (32.0-35.9); MEAN CELL VOLUME 83.7 fl (80-96); MEAN PLT VOLUME 8.4 fl (7.5-11.1); MONO % 8.5 % (3.8-10.2); NEUT % 66.9 % (42.8-82.8); PLATELET COUNT 159 K/MM3 (134-434); RBC 4.11 M/mm3 (4.00-5.60); RDW 13.7 % (11.9-15.9); WHITE BLOOD COUNT 7.2 K/mm3 (4.0-10.8)
[2017-10-24 14:18] VITALS: BP 130/64; PULSE 75; TEMP 97.6
[2017-10-24] MEDS ORDERED: ATORVASTATIN CA 10 MG TABLET (FP) PO SCH (22:00)
== END 2017-10-24 15:33 | disposition home or self-care (01) ==
LOC: FER 23:37 → FM/S 10-22 02:02 → INTOOBSV 10-22 02:26 → FM/S 10-22 02:26 → UNDOADMOB 10-22 02:26 → FM/S 10-24 06:13
PROVIDERS: ADMIT Internal Medicine; ATTEND Nurse Practitioner Family
PROC: 3E03329 Introduction of Other Anti-infective into Peripheral Vein, Percutaneous Approach (ICD-10-PCS; principal; 2017-10-22)
PROC: 3E033GC Introduction of Other Therapeutic Substance into Peripheral Vein, Percutaneous Approach (ICD-10-PCS; 2017-10-22)
PROC: 3E0337Z Introduction of Electrolytic and Water Balance Substance into Peripheral Vein, Percutaneous Approach (ICD-10-PCS; 2017-10-22)
PROC: 3E013VG Introduction of Insulin into Subcutaneous Tissue, Percutaneous Approach (ICD-10-PCS; 2017-10-22)
PROC: 3E013GC Introduction of Other Therapeutic Substance into Subcutaneous Tissue, Percutaneous Approach (ICD-10-PCS; 2017-10-22)
DX: N39.0 Urinary tract infection, site not specified (principal); A41.9 Sepsis, unspecified organism; B96.1 Klebsiella pneumoniae [K. pneumoniae] as the cause of diseases classified elsewhere; R41.82 Altered mental status, unspecified; E11.22 Type 2 diabetes mellitus with diabetic chronic kidney disease; I12.9 Hypertensive chronic kidney disease with stage 1 through stage 4 chronic kidney disease, or unspecified chronic kidney disease; I25.10 Atherosclerotic heart disease of native coronary artery without angina pectoris; I44.2 Atrioventricular block, complete; N18.9 Chronic kidney disease, unspecified; N17.9 Acute kidney failure, unspecified; E78.5 Hyperlipidemia, unspecified; N40.0 Benign prostatic hyperplasia without lower urinary tract symptoms; D64.9 Anemia, unspecified; K21.9 Gastro-esophageal reflux disease without esophagitis; R26.2 Difficulty in walking, not elsewhere classified; Z86.73 Personal history of transient ischemic attack (TIA), and cerebral infarction without residual deficits; Z79.82 Long term (current) use of aspirin; Z79.84 Long term (current) use of oral hypoglycemic drugs; Z95.0 Presence of cardiac pacemaker; Z90.49 Acquired absence of other specified parts of digestive tract; Z86.79 Personal history of other diseases of the circulatory system
CPT/HCPCS: 36415; 71045-TC-FY; 76775-TC; 80048; 80053; 81003; 81015; 82550; 82803; 82962; 83605; 83735; 84100; 84484; 85025; 85610; 87040; 87086; 87186; 93005; 96361; 96365; 96372; 96375; 97116-GP; 97162-GP; 99283-25; G0378; J1644; J7030

== ENCOUNTER 2018-07-19 00:37 | Emergency (ER) | payer OTHER ==
[2018-07-19] MEDS ORDERED: LOPERAMIDE HCL 2 MG CAPSULE PO ONE (00:54)
[2018-07-19] MEDS ORDERED: SODIUM CHLORIDE 1,000 ML IV ONE (00:55)
[2018-07-19] MEDS ORDERED: LOPERAMIDE HCL 2 MG CAPSULE ONE (01:06)
[2018-07-19 01:22] VITALS: BP 129/60; PULSE 87; TEMP 98.1; BMI 20.6
--- NOTE | 2018-07-19 01:27 | PDOC ---
History of Present Illness - General Chief Complaint: Diarrhea Stated Complaint: DIARRHEA SINCE 4PM Time Seen by Provider: 07/19/18 00:51 History Source: Patient Exam Limitations: No Limitations - History of Present Illness Initial Comments: 07/19/18 00:51 This is an 83-year-old male brought in by his family for evaluation of diarrhea. Patient has had multiple episodes of diarrhea. Patient given Imodium 1 without relief. Patient otherwise denies any complaints. Patient is feeling a little weak denies any chest pain, shortness of breath, nausea, vomiting, abdominal pain. Allergies: None Past Medical History: none Social history: Lives with family. No smoking. No alcohol. No illicit drugs. Surgical history: None General: No fevers or chills, no weakness, no weight loss HEENT: No change in vision. No sore throat,. No ear pain CardioVascular: no chest discomfort. No shortness of breath Respiratory:No cough, or wheezing. Gastrointestinal: no nausea, vomiting, + diarrhea no constipation, No rectal bleeding Genitourinary: No dysuria, hematuria, or frequency Musculoskeletal: No joint or muscle pain or swelling Neurologic: No headache, vertigo, dizziness or loss of consciousness Psychiatric: nor depression Skin: No rashes or easy bruising Endocrine: no increased thirst or abnormal weight change Allergic: no skin or latex allergy All other systems reviewed and normal Exam: General: Well-nourished well-developed individual, no acute distress HEENT: Throat: Normal, tonsils normal, no erythema or exudate Neck: Supple, no meningeal signs, no lymphadenopathy Eyes::Pupils equal reactive and round, extraocular motion intact Chest: Nontender to palpation Cardiac: S1-S2 normal, regular rate and rhythm, no murmurs rubs or gallops Respiratory: Lungs clear to auscultation bilateral Abdomen: Soft, nondistended, normal bowel sounds, there is no tenderness on palpation diffusely Extremities: Warm, dry, no cyanosis, clubbing, or edema Skin: No rashes Neuro: Alert and oriented x3, CN II - XII intact, nonfocal exam with normal strength, normal sensation, normal reflexes, normal gait, Psych: Normal mood and affect Assessment and plan: This is an 83-year-old male with diarrhea. Patient given Imodium for the diarrhea CBC and comp were sent. Patient being hydrated with IV fluids 07/19/18 02:22 Reevaluation patient feels much better well-hydrated now labs show no evidence of infection or electrolyte imbalance. Patient discharged home with his family will follow-up with his doctor in the morning + Past History - Past Medical History Allergies/Adverse Reactions: Allergies Allergy/AdvReac Type Severity Reaction Status Date / Time levofloxacin [From Levaquin] Allergy Severe Rash Verified 07/19/18 00:45 bacitracin Allergy Verified 07/19/18 00:45 nitrofurantoin Allergy Verified 07/19/18 00:45 [From Macrobid] Home Medications: Ambulatory Orders Acyclovir [Zovirax -] 400 mg PO BID 07/19/18 Atorvastatin Calcium [Lipitor] 10 mg PO DAILY 07/19/18 Doxazosin Mesylate 4 mg PO DAILY 07/19/18 Glipizide 5 mg PO BID 07/19/18 Losartan Potassium 100 mg PO DAILY 07/19/18 Metformin HCl [Metformin HCl ER] 500 mg PO BID 07/19/18 Metoprolol Tartrate 25 mg PO DAILY 07/19/18 Saxagliptin HCl [Onglyza] 2.5 mg PO DAILY 07/19/18 Tamsulosin HCl [Flomax] 0.4 mg PO DAILY 07/19/18 Anemia: No Asthma: No Cancer: No Cardiac Disorders: Yes (PPM) CVA: Yes (TIA) COPD: No CHF: No Dementia: No Diabetes: Yes GI Disorders: Yes (REFLUX) Disorders: Yes (BPH) HTN: Yes Hypercholesterolemia: Yes Seizures: No Thyroid Disease: No - Surgical History Abdominal Surgery: Yes (colon resection, hemicolectomy) Appendectomy: No Cholecystectomy: Yes Neurologic Surgery: No Orthopedic Surgery: Yes (RIGHT LEG - PLATE S/P FRACTURE 2000) - Immunization History Td Vaccination: Yes - Suicide/Smoking/Psychosocial Hx Smoking Status: No Smoking History: Never smoked Have you smoked in the past 12 months: No Number of Cigarettes Smoked Daily: 0 Hx Alcohol Use: No Drug/Substance Use Hx: No Substance Use Type: None Hx Substance Use Treatment: No ED Treatment Course - LABORATORY CBC & Chemistry Diagram: 07/19/18 01:09 07/19/18 01:09 *DC/Admit/Observation/Transfer Diagnosis at time of Disposition: Diarrhea - Discharge Dispostion Disposition: HOME Condition at time of disposition: Stable Decision to Admit order: No - Referrals Referrals: Rd Preciado MD [Primary Care Provider] - - Patient Instructions Additional Instructions: If you still have diarrhea in the morning call your doctor and follow up. Take one Imodium after each episode of diarrhea up to a total of 6 tablets a day Return to the emergency department immediately with ANY new, persistent or worsening symptoms. Continue any medications as previously prescribed by your physician. You should follow up with your primary doctor as soon as possible regarding today's emergency department visit. . Please make sure your doctor reviews the results of your emergency evaluation. Thank you for coming to the Emergency Department today for your care. It was a pleasure to see you today. Please note that your evaluation is INCOMPLETE until you follow-up with your doctor. - Post Discharge Activity
[2018-07-19 02:15] LABS: CO2 28 mmol/L (21-32); CREATININE 1.8 mg/dL (0.55-1.3)
[2018-07-19 02:16] LABS: ALBUMIN 3.4 g/dl (3.4-5.0)
[2018-07-19 02:18] LABS: ALK PHOS 70 U/L (45-117); ANION GAP 5 MMOL/L (8-16); BASO % 0.3 % (0-2.0); BILIRUBIN,TOTAL 0.8 mg/dL (0.2-1); BLOOD UREA NITROGEN 28 mg/dL (7-18); CALCIUM 8.8 mg/dL (8.5-10.1); CHLORIDE 102 mmol/L (98-107); EOS % 0.7 % (0-4.5); GLUCOSE,RANDOM 216 mg/dL (74-106); HEMATOCRIT 38.7 % (35.4-49); HEMOGLOBIN 13.2 GM/dL (11.7-16.9); LYMPH % 11.8 % (8-40); MCH 29.4 pg (25.7-33.7); MCHC 34.2 g/dl (32.0-35.9); MEAN CELL VOLUME 86.1 fl (80-96); MEAN PLT VOLUME 9.9 fl (7.5-11.1); MONO % 9.4 % (3.8-10.2); NEUT % 77.8 % (42.8-82.8); PLATELET COUNT 138 K/MM3 (134-434); POTASSIUM 3.9 mmol/L (3.5-5.1); RDW 14.7 % (11.9-15.9); SGOT/AST 16 U/L (15-37); SGPT/ALT 24 U/L (13-61); SODIUM 135 mmol/L (136-145); TOT PROT 7.8 g/dl (6.4-8.2); WHITE BLOOD COUNT 9.1 K/mm3 (4.0-10.0)
== END 2018-07-19 02:30 | disposition home or self-care (01) ==
LOC: FER 00:37
PROC: 3E0337Z Introduction of Electrolytic and Water Balance Substance into Peripheral Vein, Percutaneous Approach (ICD-10-PCS; principal; 2018-07-19)
DX: R19.7 Diarrhea, unspecified (principal); I10 Essential (primary) hypertension; Z95.0 Presence of cardiac pacemaker; E78.00 Pure hypercholesterolemia, unspecified; K21.9 Gastro-esophageal reflux disease without esophagitis; Z86.73 Personal history of transient ischemic attack (TIA), and cerebral infarction without residual deficits
CPT/HCPCS: 36415; 80053; 85025; 99281-25; J7030

== ENCOUNTER 2018-07-20 13:39 | Emergency (ER) | payer OTHER ==
[2018-07-20 14:03] VITALS: BMI 20.6
--- NOTE | 2018-07-20 14:11 | PDOC ---
History of Present Illness - General Chief Complaint: Diarrhea Stated Complaint: DIARRHEA Time Seen by Provider: 07/20/18 13:50 History Source: Patient, Spouse ( present at bedside), Old Records Exam Limitations: No Limitations - History of Present Illness Initial Comments: HPI: 83 y/o male presenting to [facility] ER accompanied by complaining of watery diarrhea since Tuesday. reports 1-2 episodes of loose, watery, and foul smelling bowel movements per day. Increased to four episodes at approx. 4am this morning. Pt endorses occasional LLQ abdominal pain, loss of appetite, and poor PO intake. Unable to identify eliciting event. Has not dined outside of the home in the past week. No other sick family members or close contacts. No recent travel. Was evaluated at this department on Tuesday night/Tuesday morning and discharged home with Imodium. has been giving 1x imodium pill after BM. No recent antibiotic usage. Started 25mg metoprolol 3 weeks ago. No other recent medication changes. Follows with Dr. Maher for GI. Last colonoscopy was within past 10 years. Reportedly normal. Family Hx: - No family history of cancer PCP: Dr. Preciado Medical Hx: - CAD s/p pacemaker placement - Diabetes - BPH - HTN - CKD - H/o traumatic intracranial hemorrhage Surgical Hx: - S/p hemicolectomy 10 years ago for unknown ulcer problem Past History - Past Medical History Allergies/Adverse Reactions: Allergies Allergy/AdvReac Type Severity Reaction Status Date / Time levofloxacin [From Levaquin] Allergy Severe Rash Verified 07/20/18 13:42 bacitracin Allergy Verified 07/20/18 13:42 nitrofurantoin Allergy Verified 07/20/18 13:42 [From Macrobid] Home Medications: Ambulatory Orders Acyclovir [Zovirax -] 400 mg PO BID 07/19/18 Atorvastatin Calcium [Lipitor] 10 mg PO DAILY 07/19/18 Doxazosin Mesylate 4 mg PO DAILY 07/19/18 Glipizide 5 mg PO BID 07/19/18 Losartan Potassium 100 mg PO DAILY 07/19/18 Metformin HCl [Metformin HCl ER] 500 mg PO BID 07/19/18 Metoprolol Tartrate 25 mg PO DAILY 07/19/18 Saxagliptin HCl [Onglyza] 2.5 mg PO DAILY 07/19/18 Tamsulosin HCl [Flomax] 0.4 mg PO DAILY 07/19/18 Cephalexin Monohydrate [Keflex -] 500 mg PO BID 5 Days #10 capsule 07/20/18 Anemia: No Asthma: No Cancer: No Cardiac Disorders: Yes (PPM) CVA: Yes (TIA) COPD: No CHF: No Dementia: No Diabetes: Yes GI Disorders: Yes (REFLUX) Disorders: Yes (BPH) HTN: Yes Hypercholesterolemia: Yes Seizures: No Thyroid Disease: No Other medical history: PROSTATE - Surgical History Abdominal Surgery: Yes (colon resection, hemicolectomy) Appendectomy: No Cardiac Surgery: Yes (PPM) Cholecystectomy: Yes Neurologic Surgery: No Orthopedic Surgery: Yes (RIGHT LEG - PLATE S/P FRACTURE 2000) - Immunization History Td Vaccination: Yes - Suicide/Smoking/Psychosocial Hx Smoking Status: No Smoking History: Never smoked Have you smoked in the past 12 months: No Number of Cigarettes Smoked Daily: 0 Information on smoking cessation initiated: No Hx Alcohol Use: No Drug/Substance Use Hx: No Substance Use Type: None Hx Substance Use Treatment: No Review of Systems - Review of Systems Able to Perform ROS?: Yes Comments:: In addition to that documented in the HPI above, the additional ROS was obtained : Constitutional: Denies fevers or chills Head: Denies headaches ENMT: Denies sore throat CV: Denies chest pain Resp: Denies SOB GI: Per HPI. Denies nausea or vomiting. : Denies painful urination MSK: Denies recent trauma Skin: Denies new rashes Neuro: Denies new numbness or tingling or weakness Endocrine: Denies polyuria, flushing, diaphoresis, or hot flashes Heme: Denies bleeding or bruising *Physical Exam - Vital Signs Last Vital Signs Temp Pulse Resp BP Pulse Ox 98.3 F 73 16 122/68 100 07/20/18 13:41 07/20/18 13:41 07/20/18 13:41 07/20/18 13:41 07/20/18 13:41 - Physical Exam Comments: Constitutional: Nontoxic elderly adult male in no acute distress or obvious discomfort. Found semi-fowlers on hospital bed. Alert and oriented x4. Head: Normocephalic. No obvious external signs of trauma. Eyes: Sclerae white. Conjunctiva dry but not injected. Ears: Hearing grossly intact. Nose: No nasal discharge. Throat: Dry oral mucosa. No inflammation, swelling, exudate, or lesions. Neck: Supple, trachea is midline. No JVD or thyromegaly. Cardiovascular / Chest: Regular rate and regular rhythm. No murmur, rubs, clicks, or gallops. Peripheral pulses: radial pulses full. Respiratory: Breathing unlabored. Equal chest rise and fall. Clear to auscultation bilaterally. No stridor, no wheezing, no rhonchi. Gastrointestinal: abdomen is soft, non-tender, non-distended. No pulsatile masses. No overlying skin lesions or obvious signs of trauma. Neuro: Alert and oriented. Moving all four extremities spontaneously. Skin: Warm, dry, and intact. No bruising, rashes, or other lesions. Psych: Affect: appropriate. Mood: normal. Moderate Sedation - Procedure Monitoring Vital Signs: Procedure Monitoring Vital Signs Temperature 98.3 F 07/20/18 13:41 Pulse Rate 73 07/20/18 13:41 Respiratory Rate 16 07/20/18 13:41 Blood Pressure 122/68 07/20/18 13:41 O2 Sat by Pulse Oximetry (%) 100 07/20/18 13:41 ED Treatment Course - LABORATORY CBC & Chemistry Diagram: 07/20/18 14:35 07/20/18 14:35 - ADDITIONAL ORDERS Additional order review: 07/20/18 07/20/18 16:25 14:35 Sodium 133 L Potassium 3.9 Chloride 104 Carbon Dioxide 24 Anion Gap 5 L BUN 27 H Creatinine 1.8 H Creat Clearance w eGFR 36.30 Random Glucose 147 H Calcium 8.9 Total Bilirubin 0.8 AST 19 ALT 15 Alkaline Phosphatase 63 Total Protein 6.4 Albumin 3.3 L Lipase 76 Urine Color Yellow Urine Appearance Cloudy Urine pH 5.5 Ur Specific [place] 1.010 Urine Protein Trace Urine Glucose (UA) Negative Urine Ketones Negative Urine Blood Trace-intact H Urine Nitrite Negative Urine Bilirubin Negative Urine Urobilinogen 0.2 Ur Leukocyte Esterase 1+ H Urine RBC 2-5 Urine WBC 20-40 Ur Epithelial Cells None seen Urine Bacteria 4+ 07/20/18 14:35 RBC 4.36 MCV 86.9 MCHC 32.8 RDW 14.3 MPV 9.7 D Neutrophils % 53.5 D Lymphocytes % 27.9 D Monocytes % 16.0 H D Eosinophils % 2.0 Basophils % 0.6 - Medications Given in the ED: ED Medications Discontinued Medications Generic Name Dose Route Start Last Admin Trade Name Parvin PRN Reason Stop Dose Admin Lactated Ringer's 1,000 ml 07/20/18 14:28 07/20/18 14:41 Lactated Ringers Solution IV 07/20/18 14:29 1,000 ml ONCE ONE Administration Sodium Chloride 500 ml 07/20/18 16:05 07/20/18 16:10 Normal Saline - IV 07/20/18 16:06 500 ml ONCE ONE Administration Medical Decision Making - Medical Decision Making *Reviewed vital signs, nursing notes, and prior visit documentation (if available). 83 y/o male with diarrhea x5 days. Averaging 2x episodes per day. Afebrile. Vitals unremarkable for hypotension or tachycardia. Physical exam as described above. Dry mucosal membranes. Suspect viral enteritis. Low suspicion for c. Diff , biliary or hepatic pathology, carcinoid syndrome. Will obtain CBC, CMP, Lipase , UA, and urine culture to further evaluate. Ordered IVFB for rehydration. No indication for imaging at this time. CBC unremarkable for leukocytosis or anemia. CMP unremarkable for significant electrolyte derangement or LFT elevation. Cr elevated near baseline recorded in [employer]. Suspect possible progression of CKD versus CHARLY. Receiving IVFB. Will encourage increased oral rehydration. Lipase not elevated. UA revealed pyuria, leukocyte esterase, and 4+ bacteria. Urine culture pending. Will prescribe 5 day course of Keflex. Pt reassessed. Found sleeping comfortably. Arousable to voice. Repeat abdominal exam unchanged. No peritoneal signs. Discussed laboratory results with pt and pts . Answered all questions. Provided return precautions. Pt and expressed verbal understanding and agreement with plan to discharge home with outpatient follow up. *DC/Admit/Observation/Transfer Diagnosis at time of Disposition: Diarrhea Qualifiers: Diarrhea type: unspecified type Qualified Code(s): R19.7 - Diarrhea, unspecified - Discharge Dispostion Disposition: HOME Condition at time of disposition: Fair Decision to Admit order: No - Prescriptions Prescriptions: Cephalexin Monohydrate [Keflex -] 500 mg PO BID 5 Days #10 capsule - Referrals Schedule a call back: Urine Culture Referrals: Rd Preciado MD [Primary Care Provider] - - Patient Instructions Printed Discharge Instructions: Diarrhea Additional Instructions: You were seen today for diarrhea. Your urine test showed you likely have a urinary infection. Your blood tests were all normal. I have sent a prescription for an antibiotic called Mili to your pharmacy. Take as directed on the package insert. Be sure to drink plenty of liquids. Eat small, bland meals. Follow up with your primary care doctor within the next 3-4 days. You will need to call to make an appointment. The number is included in this packet. A copy of todays results are attached to this packet. Take it to the appointment so your doctor can review them. Go to the nearest emergency department if your condition worsens or you feel like you need additional emergency evaluation. Print Language: HAITIAN - Post Discharge Activity
[2018-07-20] MEDS ORDERED: LACTATED RINGERS SOLUTION 1000 ML INFUS.BAG IV ONE (14:28)
--- NOTE | 2018-07-20 14:28 | PDOC ---
Attending Attestation - Resident Resident Name: Chirag Helms - ED Attending Attestation I have performed the following: I have examined & evaluated the patient, The case was reviewed & discussed with the resident, I agree w/resident's findings & plan, Exceptions are as noted - HPI HPI: 07/20/18 14:29 83y M hx of DM, HTN, HL, CAD, sp PPM presents with complaint of diarrhea. Pt has been having diarrhea for ~3-4 days - was seen in the ED the evening of the 5th in the ED. Lab work showed pt had mild ckd, probably around his baseline. pt was doing well and dc with immodium PRN. The patient returns today with persistent diarrhea. Pt had several episodes of loose fou smelling stool yesterday particuarly after aeting. no associated fever/chlls, n/v, cp, sob, back pain, blood in stool. Diarrhea associated with mild LLQ pain,but no pain currently. N oprior abd surgery. on exam: GENERAL: no acute dsitress HEENT: dry mucus membranes, anicteric ABD: soft, nontender, no focal guarding/erbound, no cva tenderness CARD: rrr, no mrg RESP: cta b/l ext: no edema suspect enteritis, pt given fluids for hydration as pts prior labs show cr of 1.8 will recheck no abd tenderness to suggest colitis will reasssess - Physicial Exam PE: 07/20/18 17:15 see above - Medical Decision Making 07/20/18 17:14 labs reviewed noted for baseline creatinine abd soft nontender, no diarrhea here UA cw uti will treat with keflex will dc with pmd fu strict returion precautions were discussed
[2018-07-20 14:47] LABS: BASO % 0.6 % (0-2.0); HEMATOCRIT 37.9 % (35.4-49); HEMOGLOBIN 12.4 GM/dl (11.7-16.9); LYMPH % 27.9 % (8-40); MCH 28.5 pg (25.7-33.7); MCHC 32.8 g/dl (32.0-35.9); MEAN CELL VOLUME 86.9 fl (80-96); MEAN PLT VOLUME 9.7 fl (7.5-11.1); NEUT % 53.5 % (42.8-82.8); PLATELET COUNT 153 K/MM3 (134-434); RBC 4.36 M/mm3 (4.00-5.60); RDW 14.3 % (11.9-15.9)
[2018-07-20 14:55] LABS: ALBUMIN 3.3 g/dl (3.4-5.0); ALK PHOS 63 U/L (45-117); ANION GAP 5 MMOL/L (8-16); BILIRUBIN,TOTAL 0.8 mg/dl (0.2-1); BLOOD UREA NITROGEN 27 mg/dl (7-18); CALCIUM 8.9 mg/dl (8.5-10); CHLORIDE 104 mmol/L (98-107); CO2 24 mmol/L (21-32); CREATININE 1.8 mg/dl (0.55-1.3); GLUCOSE,RANDOM 147 mg/dl (74-106); POTASSIUM 3.9 mmol/L (3.5-5.1); SGOT/AST 19 U/L (15-37); SGPT/ALT 15 U/L (13-61); SODIUM 133 mmol/L (136-145); TOT PROT 6.4 g/dl (6.4-8.2)
[2018-07-20] MEDS ORDERED: SODIUM CHLORIDE 0.9% 500 ML INFUS.BAG IV ONE (16:05)
[2018-07-20 16:31] LABS: PH,URINE 5.5 (4.5-8); URINE APPEARANCE Cloudy; URINE BILIRUBIN Negative (NEGATIVE); URINE COLOR Yellow; URINE GLUCOSE (UA) Negative (NEGATIVE); URINE KETONE Negative (NEGATIVE); URINE LEUK ESTERASE 1+ (NEGATIVE); URINE NITRITE Negative (NEGATIVE); URINE PROTEIN Trace (NEGATIVE); URINE UROBILINOGEN 0.2 (0.2-1.0)
[2018-07-20 16:46] LABS: LIPASE 76 U/L (73-393)
[2018-07-20 16:59] LABS: EPI CELLS NONE SEEN /HPF; URINE BACTERIA 4+ /hpf (NEGATIVE); URINE WBC 20-40 (0-2)
[2018-07-20 17:18] VITALS: BP 124/63; PULSE 75; TEMP 97.7
--- NOTE | 2018-07-23 13:56 | PDOC ---
Patient Follow-up (Call Back) - Post ED Follow - Up Condition at time of discharge: Fair Disposition at time of original discharge: HOME Signs/Symptoms Improved: No - Disposition Rx Needed: No Additional Instructions/Notes: 83 yo male h/o frequent uti, recently evaluated in ED 07/20 for diarreha, incidently found to have wbc in urine. sent on keflex. cultures resulted today received call from [facility] pt has esbl ecoli in urine. d/w w pt . states in past dr Swenson and dr Cannon have not treated uti unless symptomatic. has had klebsiellea in past as well. pt is allergic to floroquinolones,a nd macrobid. all other choices iv. states he is not sxs currently afebrile, no dysuria, urine looks clear. case d/w dr swenson, recommends not treating unless sxs. d/ w covering doctor for dr gunderson, Dr Beard, pt has appt in 3 days. will hold on further abx currently. instructed to return for fever dysuria or any concerns. is prior nurse aware of signs of infection.
== END 2018-07-20 18:03 | disposition home or self-care (01) ==
LOC: FER 13:39 → SUPCPDRO 13:39 → FER 18:03
PROC: 3E0337Z Introduction of Electrolytic and Water Balance Substance into Peripheral Vein, Percutaneous Approach (ICD-10-PCS; principal; 2018-07-20)
DX: R19.7 Diarrhea, unspecified (principal); I10 Essential (primary) hypertension; E78.00 Pure hypercholesterolemia, unspecified; K21.9 Gastro-esophageal reflux disease without esophagitis; Z95.0 Presence of cardiac pacemaker; Z86.73 Personal history of transient ischemic attack (TIA), and cerebral infarction without residual deficits
CPT/HCPCS: 36415; 80053; 81003; 81015; 83690; 85025; 87086; 87186; 99283-25

== ENCOUNTER 2018-10-01 00:16 | Emergency (ER) | payer OTHER ==
[2018-10-01 00:22] VITALS: BMI 21.2
--- NOTE | 2018-10-01 00:56 | PDOC ---
History of Present Illness - General Chief Complaint: Hematuria Stated Complaint: BLEEDING ON URINATION Time Seen by Provider: 10/01/18 00:47 History Source: Patient Exam Limitations: No Limitations - History of Present Illness Initial Comments: 10/01/18 00:52 This is an 83-year-old male brought in by his for evaluation of blood in his urine. Patient has history of Escherichia coli is urine in the past. Patient has never had blood in his urine before. Patient does have a urologist. Patient denies any abdominal pain, there is some pain at the end of urination but denies any flank pain, back pain, fever, chills, nausea. Allergies: as per nursing notes Past Medical History: none Social history: Lives with family. No smoking. No alcohol. No illicit drugs. Surgical history: None General: No fevers or chills, no weakness, no weight loss HEENT: No change in vision. No sore throat,. No ear pain CardioVascular: no chest discomfort. No shortness of breath Respiratory:No cough, or wheezing. Gastrointestinal: no nausea, vomiting, diarrhea or constipation, No rectal bleeding Genitourinary: No dysuria, hematuria, or frequency, +hematuria Musculoskeletal: No joint or muscle pain or swelling Neurologic: No headache, vertigo, dizziness or loss of consciousness Psychiatric: nor depression Skin: No rashes or easy bruising Endocrine: no increased thirst or abnormal weight change Allergic: no skin or latex allergy All other systems reviewed and normal Exam: General: Well-nourished well-developed individual, no acute distress HEENT: Throat: Normal, tonsils normal, no erythema or exudate Neck: Supple, no meningeal signs, no lymphadenopathy Eyes::Pupils equal reactive and round, extraocular motion intact Chest: Nontender to palpation Cardiac: S1-S2 normal, regular rate and rhythm, no murmurs rubs or gallops Respiratory: Lungs clear to auscultation bilateral Abdomen: Soft, nondistended, normal bowel sounds, there is no tenderness on palpation diffusely Extremities: Warm, dry, no cyanosis, clubbing, or edema Skin: No rashes Neuro: Alert and oriented x3, CN II - XII intact, nonfocal exam with normal strength, normal sensation, normal reflexes, normal gait, Psych: Normal mood and affect Assessment and plan: This is an 83-year-old male with blood in his urine. UA, CBC, comp was sent. Patient had a bladder scan done that showed for her cc of urine in the bladder so a Garcia was placed and patient will be sent home with a leg bag. Patient does have a urologist he can follow-up with. Patient's white count was normal and his H&H was normal Paper patient does have some chronic renal insufficiency but in review of prior labs it is slightly worse than prior but has been present for some time Patient's urine was positive for blood as well as white cells and bacteria so will be treated with an antibiotic antibiotic choice is difficult as patient is ALLERGIC to Levaquin Bactrim and recommended. However I will give him a single dose of fosfomycin. We do not have it here in the pharmacy so I sent a prescription to his pharmacy for him to get filled in the morning and take Patient was instructed to call his urologist Tuesday morning and follow-up with his urologist. Patient discharged home. Past History - Past Medical History Allergies/Adverse Reactions: Allergies Allergy/AdvReac Type Severity Reaction Status Date / Time levofloxacin [From Levaquin] Allergy Severe Rash Verified 10/01/18 00:17 bacitracin Allergy Verified 10/01/18 00:17 nitrofurantoin Allergy Verified 10/01/18 00:17 [From Macrobid] Home Medications: Ambulatory Orders Acyclovir [Zovirax -] 400 mg PO BID 07/19/18 Atorvastatin Calcium [Lipitor] 10 mg PO DAILY 07/19/18 Doxazosin Mesylate 4 mg PO DAILY 07/19/18 Glipizide 5 mg PO BID 07/19/18 Losartan Potassium 100 mg PO DAILY 07/19/18 Metformin HCl [Metformin HCl ER] 500 mg PO BID 07/19/18 Metoprolol Tartrate 25 mg PO DAILY 07/19/18 Saxagliptin HCl [Onglyza] 2.5 mg PO DAILY 07/19/18 Tamsulosin HCl [Flomax] 0.4 mg PO DAILY 07/19/18 Fosfomycin Tromethamine [Monurol (Nf) -] 3 gm PO DAILY #1 packet 10/01/18 Anemia: No Asthma: No Cancer: No Cardiac Disorders: Yes (PPM) CVA: Yes (TIA) COPD: No CHF: No Dementia: No Diabetes: Yes GI Disorders: Yes (REFLUX) Disorders: Yes (BPH) HTN: Yes Hypercholesterolemia: Yes Seizures: No Thyroid Disease: No - Surgical History Abdominal Surgery: Yes (colon resection, hemicolectomy) Appendectomy: No Cardiac Surgery: Yes (PPM) Cholecystectomy: Yes Neurologic Surgery: No Orthopedic Surgery: Yes (RIGHT LEG - PLATE S/P FRACTURE 2000) - Immunization History Td Vaccination: Yes - Suicide/Smoking/Psychosocial Hx Smoking Status: No Smoking History: Never smoked Have you smoked in the past 12 months: No Number of Cigarettes Smoked Daily: 0 Hx Alcohol Use: No Drug/Substance Use Hx: No Substance Use Type: None Hx Substance Use Treatment: No *Physical Exam - Vital Signs Last Vital Signs Temp Pulse Resp BP Pulse Ox 98.5 F 78 18 173/84 H 100 10/01/18 00:17 10/01/18 00:17 10/01/18 00:17 10/01/18 00:17 10/01/18 00:17 ED Treatment Course - LABORATORY CBC & Chemistry Diagram: 10/01/18 00:58 10/01/18 00:58 *DC/Admit/Observation/Transfer Diagnosis at time of Disposition: Urine retention Hematuria Qualifiers: Hematuria type: unspecified type Qualified Code(s): R31.9 - Hematuria, unspecified - Discharge Dispostion Disposition: HOME Condition at time of disposition: Stable Decision to Admit order: No - Prescriptions Prescriptions: Fosfomycin Tromethamine [Monurol (Nf) -] 3 gm PO DAILY #1 packet - Referrals - Patient Instructions Additional Instructions: Wear the leg bag until you see the urologist. Call urologist Tuesday morning and get an appointment for as soon as you can get in to see the urologist. Go your pharmacy tomorrow and get the prescription that I sent therefore fosfomycin. This is a powder E will mix it in water and drink and is a one-time dose only. Return to the emergency department immediately with ANY new, persistent or worsening symptoms. Continue any medications as previously prescribed by your physician. You should follow up with your primary doctor as soon as possible regarding today's emergency department visit. . Please make sure your doctor reviews the results of your emergency evaluation. Thank you for coming to the Emergency Department today for your care. It was a pleasure to see you today. Please note that your evaluation is INCOMPLETE until you follow-up with your doctor. - Post Discharge Activity
[2018-10-01 01:40] LABS: BASO % 0.4 % (0-2.0); EOS % 1.5 % (0-4.5); HEMATOCRIT 37.9 % (35.4-49); HEMOGLOBIN 12.3 GM/dL (11.7-16.9); MCH 28.3 pg (25.7-33.7); MCHC 32.5 g/dl (32.0-35.9); MEAN CELL VOLUME 87.2 fl (80-96); MEAN PLT VOLUME 10.1 fl (7.5-11.1); MONO % 9.3 % (3.8-10.2); NEUT % 68.8 % (42.8-82.8); PLATELET COUNT 127 K/MM3 (134-434); RBC 4.35 M/mm3 (4.00-5.60); RDW 14.3 % (11.9-15.9); WHITE BLOOD COUNT 7.2 K/mm3 (4.0-10.0)
[2018-10-01 01:45] LABS: EPI CELLS 0.2 /HPF (0-5/HPF); URINE APPEARANCE TURBID; URINE BACTERIA 147.2 /hpf (NEGATIVE); URINE BILIRUBIN 1+ (NEGATIVE); URINE CASTS 83 /lpf (0-8); URINE COLOR RED; URINE GLUCOSE (UA) TRACE (NEGATIVE); URINE KETONE NEGATIVE (NEGATIVE); URINE LEUK ESTERASE 2+ (NEGATIVE); URINE NITRITE POSITIVE (NEGATIVE); URINE PROTEIN 3+ (NEGATIVE); URINE RBC 4834 /hpf (0-4); URINE UROBILINOGEN 0.2 mg/dL (0.2-1.0); URINE WBC 57 /hpf (0-5)
[2018-10-01 02:08] LABS: ALBUMIN 3.3 g/dl (3.4-5.0); BILIRUBIN,TOTAL 0.5 mg/dL (0.2-1); CREATININE 1.6 mg/dL (0.55-1.3); POTASSIUM 3.8 mmol/L (3.5-5.1)
[2018-10-01 02:38] VITALS: BP 158/72; PULSE 74; TEMP 98.4
[2018-10-01] MEDS ORDERED: CEFTRIAXONE 1,000 MG in DEXTROSE 5%-WATER - 50 ML IVPB ONE (03:41)
--- NOTE | 2018-10-01 03:43 | PDOC ---
*Physical Exam - Vital Signs Last Vital Signs Temp Pulse Resp BP Pulse Ox 98.4 F 74 18 158/72 98 10/01/18 02:37 10/01/18 02:37 10/01/18 02:37 10/01/18 02:37 10/01/18 02:37 10/01/18 03:42 Post discharge patient was unable to obtain the fosfomycin from any local pharmacies. So I gave him a dose of ceftriaxone ED Treatment Course - LABORATORY CBC & Chemistry Diagram: 10/01/18 00:58 10/01/18 00:58 - ADDITIONAL ORDERS Additional order review: Laboratory Results 10/01/18 10/01/18 10/01/18 00:58 00:58 00:58 Sodium 138 Potassium 3.8 Chloride 106 Carbon Dioxide 26 Anion Gap 7 L BUN 36 H Creatinine 1.6 H Est GFR (CKD-EPI)AfAm 45.82 Est GFR (CKD-EPI)NonAf 39.53 Random Glucose 197 H Calcium 9.0 Total Bilirubin 0.5 AST 14 L ALT 21 Alkaline Phosphatase 75 Total Protein 7.0 Albumin 3.3 L Urine Color Red Cancelled Urine Appearance Turbid Cancelled Urine pH 5.0 Cancelled Ur Specific Alvo 1.015 Urine Protein 3+ H Cancelled Urine Glucose (UA) Trace Cancelled Urine Ketones Negative Cancelled Urine Blood 3+ H Cancelled Urine Nitrite Positive H Cancelled Urine Bilirubin 1+ H Cancelled Urine Urobilinogen 0.2 Cancelled Ur Leukocyte Esterase 2+ H Cancelled Urine WBC (Auto) 57 Urine RBC (Auto) 4834 Urine Casts (Auto) 83 U Pathogenic Cast Auto 0 U Epithel Cells (Auto) 0.2 Urine Bacteria (Auto) 147.2 10/01/18 00:58 RBC 4.35 MCV 87.2 MCHC 32.5 RDW 14.3 MPV 10.1 Neutrophils % 68.8 Lymphocytes % 20.0 D Monocytes % 9.3 Eosinophils % 1.5 D Basophils % 0.4 *DC/Admit/Observation/Transfer Diagnosis at time of Disposition: Urine retention Hematuria Qualifiers: Hematuria type: unspecified type Qualified Code(s): R31.9 - Hematuria, unspecified - Discharge Dispostion Disposition: HOME Condition at time of disposition: Stable - Prescriptions Prescriptions: Fosfomycin Tromethamine [Monurol (Nf) -] 3 gm PO DAILY #1 packet Fosfomycin Tromethamine [Monurol (Nf) -] 3 gm PO DAILY #1 packet - Referrals - Patient Instructions Additional Instructions: Wear the leg bag until you see the urologist. Call urologist Tuesday morning and get an appointment for as soon as you can get in to see the urologist. Go your pharmacy tomorrow and get the prescription that I sent therefore fosfomycin. This is a powder E will mix it in water and drink and is a one-time dose only. Return to the emergency department immediately with ANY new, persistent or worsening symptoms. Continue any medications as previously prescribed by your physician. You should follow up with your primary doctor as soon as possible regarding today's emergency department visit. . Please make sure your doctor reviews the results of your emergency evaluation. Thank you for coming to the Emergency Department today for your care. It was a pleasure to see you today. Please note that your evaluation is INCOMPLETE until you follow-up with your doctor. - Post Discharge Activity
[2018-10-01] MEDS ORDERED: cefTRIAXone SODIUM 1 GM VIAL ONE (03:45)
[2018-10-02] MEDS ORDERED: PILOCARPINE 2% OPHTHALMIC SOLUTION 15 ML BOTTLE OU SCH (22:00)
[2018-10-02] MEDS ORDERED: TIMOLOL 0.5% OPHTHALMIC SOL 5 ML BOTTLE OU SCH (22:00)
[2018-10-02] MEDS ORDERED: BRIMONIDINE TARTRATE 0.2% OPHTHALMIC 5 ML BOTTLE OU SCH (22:00)
[2018-10-02] MEDS ORDERED: DORZOLAMIDE 2% HCL OPHTHALMIC SOLUTION 10 ML BOTTLE OU SCH (22:00)
[2018-10-02] MEDS ORDERED: PT OWN MED (PYXIS) OU SCH (22:00)
== END 2018-10-01 03:05 | disposition home or self-care (01) ==
LOC: FER 00:16
DX: R31.9 Hematuria, unspecified (principal); R33.9 Retention of urine, unspecified; N40.0 Benign prostatic hyperplasia without lower urinary tract symptoms; Z95.0 Presence of cardiac pacemaker; E78.00 Pure hypercholesterolemia, unspecified; I10 Essential (primary) hypertension; K21.9 Gastro-esophageal reflux disease without esophagitis
CPT/HCPCS: 36415; 80053; 81003; 85025; 87086; 99283-25

== ENCOUNTER 2018-10-02 06:41 | Inpatient (IN) | payer OTHER | END 2018-10-07 13:39 | disposition home health service (06) | LOC: JER 06:41 → JERBED 10:06 → J8W 13:36 ==

== ENCOUNTER 2021-09-07 18:12 | Emergency (ER) | payer OTHER ==
[2021-09-07 18:56] VITALS: BP 163/64; PULSE 64; BMI 21.1
[2021-09-07 21:14] LABS: BASO % 0.4 % (0-2.0); EOS % 3.6 % (0-4.5); HEMATOCRIT 34.8 % (35.4-49); HEMOGLOBIN 11.5 GM/dL (11.7-16.9); LYMPH % 17.8 % (8-40); MCH 28.7 pg (25.7-33.7); MCHC 32.9 g/dl (32.0-35.9); MEAN CELL VOLUME 87.4 fl (80-96); MEAN PLT VOLUME 9.5 fl (7.5-11.1); MONO % 10.6 % (3.8-10.2); NEUT % 67.6 % (42.8-82.8); PLATELET COUNT 128 10^3/uL (134-434); RBC 3.99 M/mm3 (4.00-5.60)
[2021-09-07 21:34] LABS: CALCIUM 9.1 mg/dL (8.5-10.1)
[2021-09-07 21:36] LABS: ALBUMIN 3.2 g/dl (3.4-5.0); BLOOD UREA NITROGEN 64.2 mg/dL (7-18)
[2021-09-07 21:39] LABS: CREATININE 2.6 mg/dL (0.55-1.3)
[2021-09-07 21:40] LABS: BILIRUBIN,TOTAL 0.4 mg/dL (0.2-1)
== END 2021-09-08 00:55 | disposition home or self-care (01) ==
LOC: JER 18:12
DX: R10.9 Unspecified abdominal pain (principal)
CPT/HCPCS: 36415; 74176-TC; 80053; 83605; 83690; 85025; 93005; 93010; 99285-25

== ENCOUNTER 2022-02-22 19:35 | Inpatient (IN) | payer OTHER ==
[2022-02-22] MEDS ORDERED: LACTATED RINGERS SOLUTION 1000 ML INFUS.BAG IV ONE ×3 (20:01→23:08)
[2022-02-22 20:34] LABS: VENOUS BASE EXCESS -6.1 mmol/L (-2-2); VENOUS O2 SATURATION 64.4 % (70-80); VENOUS PCO2 42.6 mmHg (38-52); VENOUS PH 7.291 (7.310-7.410)
[2022-02-22 20:41] LABS: BASO % 0.2 % (0-2.0); EOS % 1.8 % (0-4.5); HEMATOCRIT 29.6 % (35.4-49); HEMOGLOBIN 9.6 GM/dL (11.7-16.9); LYMPH % 7.5 % (8-40); MCH 27.7 pg (25.7-33.7); MCHC 32.5 g/dl (32.0-35.9); MONO % 6.4 % (3.8-10.2); NEUT % 84.1 % (42.8-82.8); PLATELET COUNT 129 10^3/uL (134-434); RBC 3.48 M/mm3 (4.00-5.60); RDW 17.2 % (11.9-15.9); WHITE BLOOD COUNT 9.1 K/mm3 (4.0-10.0)
[2022-02-22 20:49] LABS: INR 0.92 (0.83-1.09); PROTHROMBIN TIME (PATIENT) 10.6 SEC (9.7-13.0)
[2022-02-22 20:51] LABS: ACTIVATED PTT 30.6 SECONDS (25.2-36.5)
[2022-02-22 21:40] LABS: CALCIUM 8.5 mg/dL (8.5-10.1)
[2022-02-22 21:41] LABS: ALBUMIN 2.8 g/dl (3.4-5.0); BLOOD UREA NITROGEN 77.2 mg/dL (7-18); MAGNESIUM 2.4 mg/dL (1.8-2.4)
[2022-02-22 21:44] LABS: CREATININE 5.1 mg/dL (0.55-1.3)
[2022-02-22 21:45] LABS: BILIRUBIN,TOTAL 0.4 mg/dL (0.2-1); TOT PROT 6.8 g/dl (6.4-8.2)
[2022-02-22 21:49] LABS: EPI CELLS 2 /uL (0-25.1); HYALINE CASTS 0 /uL (0-3.1); PH,URINE 5.5 (5.0-8.0); URINE APPEARANCE TURBID; URINE BACTERIA >9,000 /uL (0-1359); URINE BILIRUBIN NEGATIVE (NEGATIVE); URINE COLOR YELLOW; URINE GLUCOSE (UA) NEGATIVE (NEGATIVE); URINE KETONE NEGATIVE (NEGATIVE); URINE LEUK ESTERASE 3+ (NEGATIVE); URINE NITRITE NEGATIVE (NEGATIVE); URINE PROTEIN 2+ (NEGATIVE); URINE RBC 602 /uL (0-23.9); URINE UROBILINOGEN 0.2 mg/dL (0.2-1.0); URINE WBC 3946 /uL (0-25.8)
[2022-02-22] MEDS ORDERED: PIPERACILLIN/TAZOB 4.5 GM 4.5 GM in DEXTROSE 5%-WATER 100 ML IVPB ONE (21:59)
[2022-02-22] MEDS ORDERED: PIPERACILLIN/TAZOB 4.5 GM 4.5 GM/100 ML BAG IVPB ONE (22:02)
[2022-02-22] MEDS ORDERED: ACETAMINOPHEN 1000 MG/100 ML BAG IVPB ONE (22:26)
[2022-02-22] MEDS ORDERED: ACETAMINOPHEN INJECTION 100 ML IVPB ONE (22:59)
[2022-02-22] MEDS ORDERED: SODIUM CHLORIDE 0.9% 500 ML INFUS.BAG IV ONE (23:06)
[2022-02-23] MEDS ORDERED: LACTATED RINGERS SOLUTION 1,000 ML/1,000 ML INFUS.BAG IV STA (00:43)
[2022-02-23] MEDS ORDERED: PHENYLEPHRINE HCL 10 MG/1 ML SINGLE DOSE VIAL ONE (01:08)
[2022-02-23] MEDS: PHENYLEPHRINE NS PREMIX 50,000 MCG/500 ML BAG CVP SCH (01:31)
[2022-02-23] MEDS ORDERED: LACTATED RINGERS SOLUTION 1,000 ML/1,000 ML INFUS.BAG IV SCH (02:30)
[2022-02-23] MEDS ORDERED: ACETAMINOPHEN 1000 MG/100 ML BAG IVPB ONE (02:37)
[2022-02-23] MEDS ORDERED: LACTATED RINGERS SOLUTION 1000 ML INFUS.BAG IV ONE (07:01)
[2022-02-23 07:57] LABS: MCH 27.2 pg (25.7-33.7); MCHC 32.3 g/dl (32.0-35.9); MEAN CELL VOLUME 84.3 fl (80-96); MEAN PLT VOLUME 8.4 fl (7.5-11.1); PLATELET COUNT 124 10^3/uL (134-434); RBC 3.33 M/mm3 (4.00-5.60); RDW 17.2 % (11.9-15.9); WHITE BLOOD COUNT 9.5 K/mm3 (4.0-10.0)
[2022-02-23 08:11] LABS: ALBUMIN 2.3 g/dl (3.4-5.0); BLOOD UREA NITROGEN 69.7 mg/dL (7-18)
[2022-02-23 08:13] LABS: CREATININE 4.4 mg/dL (0.55-1.3)
[2022-02-23 08:14] LABS: BILIRUBIN,DIRECT 0.1 mg/dL (0.0-0.2); PHOSPHOROUS 4.5 mg/dL (2.5-4.9)
[2022-02-23 08:15] LABS: TOT PROT 5.5 g/dl (6.4-8.2)
[2022-02-23] MEDS ORDERED: WATER IVPB SCH (08:15)
[2022-02-23] MEDS ORDERED: MEROPENEM IVPB SCH (08:15)
[2022-02-23] MEDS ORDERED: DEXTROSE 5% IVPB SCH (08:15)
[2022-02-23 08:16] LABS: BILIRUBIN,TOTAL 0.4 mg/dL (0.2-1)
[2022-02-23] MEDS ORDERED: NOREPINEPHRINE BITARTRATE/D5W 8 MG/250 ML BAG IVPB SCH (08:45)
[2022-02-23] MEDS ORDERED: NOREPINEPHRINE BITARTRATE 8,000 MCG in SODIUM CHLORIDE 492 ML IV SCH ×2 (09:00→09:45)
[2022-02-23] MEDS: PANTOPRAZOLE SODIUM 40 MG VIAL IVPUSH SCH (09:06)
[2022-02-23] MEDS: MEROPENEM 500 MG in DEXTROSE 5%-WATER 100 ML IVPB SCH ×2 (09:06→21:50)
[2022-02-23] MEDS ORDERED: NOREPINEPHRINE BITARTRATE 4 MG/4 ML ML IV ONE ×3 (09:10→09:54)
[2022-02-23] MEDS ORDERED: NOREPINEPHRINE BITARTRATE 4,000 MCG in DEXTROSE 5%-WATER - 496 ML IV SCH (09:30)
[2022-02-23] MEDS ORDERED: NOREPINEPHRINE BITARTRATE 8,000 MCG in DEXTROSE 5%-WATER - 492 ML IV SCH (09:34)
[2022-02-23] MEDS ORDERED: MEROPENEM 500 MG in DEXTROSE 5%-WATER 100 ML IVPB SCH (10:00)
[2022-02-23] MEDS ORDERED: PNEUMOC 20-VAL CONJ-DIP CRM/PF 0.5 ML SYRINGE IM ONE (10:00)
[2022-02-23] MEDS ORDERED: PIPERACILLIN/TAZOB 3.375 GM 3.375 GM in DEXTROSE 5%-WATER - 50 ML IVPB SCH ×3 (10:00)
[2022-02-23] MEDS ORDERED: HYDROCORTISONE SOD SUCCINATE 100 MG/2 ML VIAL IVPB SCH (11:00)
[2022-02-23] MEDS: FLUDROCORTISONE ACETATE 0.1 MG TABLET (FP) PO SCH (12:00)
[2022-02-23] MEDS: VASOPRESSIN 40 UNITS/100 ML BAG IV SCH (12:06)
[2022-02-23] MEDS: NOREPINEPHRINE BITARTRATE 4,000 MCG in DEXTROSE 5%-WATER - 496 ML IV SCH (12:07)
[2022-02-23] MEDS ORDERED: HYDROCORTISONE SOD SUCCINATE 100 MG/2 ML VIAL IVPUSH SCH (12:15)
[2022-02-23] MEDS: LACTATED RINGERS SOLUTION 1,000 ML/1,000 ML INFUS.BAG IV SCH ×2 (13:00→22:59)
[2022-02-23] MEDS: HEPARIN NA (PORCINE) 5,000 UNITS/ML 1ML VIAL SQ SCH ×2 (14:06→21:52)
[2022-02-23] MEDS: BRIMONIDINE TARTRATE 0.2% OPHTHALMIC 5 ML BOTTLE OU SCH ×2 (15:31→21:52)
[2022-02-23] MEDS: PILOCARPINE 2% OPHTHALMIC SOLUTION 15 ML BOTTLE OU SCH ×2 (15:32→21:50)
[2022-02-23] MEDS: DORZOLAMIDE 2% HCL OPHTHALMIC SOLUTION 10 ML BOTTLE OU SCH ×2 (15:32→21:51)
[2022-02-23] MEDS: INSULIN SLIDING SCALE (NOVOLOG) 1 VIAL SQ SCH ×2 (17:07→21:51)
[2022-02-23] MEDS: HYDROCORTISONE SOD SUCCINATE 100 MG/2 ML VIAL IVPUSH SCH (17:08)
[2022-02-23] MEDS ORDERED: BIMATOPROST OU SCH (22:00)
[2022-02-24] MEDS: PHENYLEPHRINE NS PREMIX 50,000 MCG/500 ML BAG CVP SCH (06:24)
[2022-02-24] MEDS: HEPARIN NA (PORCINE) 5,000 UNITS/ML 1ML VIAL SQ SCH ×3 (06:36→22:16)
[2022-02-24] MEDS: HYDROCORTISONE SOD SUCCINATE 100 MG/2 ML VIAL IVPUSH SCH ×3 (06:37→22:28)
[2022-02-24] MEDS: DORZOLAMIDE 2% HCL OPHTHALMIC SOLUTION 10 ML BOTTLE OU SCH ×3 (06:38→22:16)
[2022-02-24] MEDS: BRIMONIDINE TARTRATE 0.2% OPHTHALMIC 5 ML BOTTLE OU SCH ×3 (06:38→22:25)
[2022-02-24] MEDS: PILOCARPINE 2% OPHTHALMIC SOLUTION 15 ML BOTTLE OU SCH ×3 (06:38→22:24)
[2022-02-24] MEDS: INSULIN SLIDING SCALE (NOVOLOG) 1 VIAL SQ SCH ×4 (06:51→22:09)
[2022-02-24 07:36] LABS: CALCIUM 7.9 mg/dL (8.5-10.1)
[2022-02-24 07:37] LABS: ALBUMIN 2.1 g/dl (3.4-5.0); BLOOD UREA NITROGEN 69.5 mg/dL (7-18)
[2022-02-24 07:40] LABS: BILIRUBIN,TOTAL 0.3 mg/dL (0.2-1); CREATININE 4.4 mg/dL (0.55-1.3); PHOSPHOROUS 5.1 mg/dL (2.5-4.9); TOT PROT 5.4 g/dl (6.4-8.2)
[2022-02-24 08:20] LABS: BASO % 0.1 % (0-2.0); EOS % 0.1 % (0-4.5); HEMATOCRIT 27.8 % (35.4-49); HEMOGLOBIN 8.9 GM/dL (11.7-16.9); LYMPH % 6.8 % (8-40); MCH 27.3 pg (25.7-33.7); MEAN CELL VOLUME 85.2 fl (80-96); MEAN PLT VOLUME 9.2 fl (7.5-11.1); MONO % 4.1 % (3.8-10.2); NEUT % 88.9 % (42.8-82.8); PLATELET COUNT 110 10^3/uL (134-434); RBC 3.26 M/mm3 (4.00-5.60); RDW 17.3 % (11.9-15.9); WHITE BLOOD COUNT 9.4 K/mm3 (4.0-10.0)
[2022-02-24] MEDS: FLUDROCORTISONE ACETATE 0.1 MG TABLET (FP) PO SCH (09:39)
[2022-02-24] MEDS: PANTOPRAZOLE SODIUM 40 MG VIAL IVPUSH SCH (09:40)
[2022-02-24] MEDS ORDERED: MEROPENEM 500 MG in DEXTROSE 5%-WATER 100 ML IVPB SCH (11:00)
[2022-02-24] MEDS: VASOPRESSIN 40 UNITS/100 ML BAG IV SCH (11:34)
[2022-02-24] MEDS: NOREPINEPHRINE BITARTRATE 4,000 MCG in DEXTROSE 5%-WATER - 496 ML IV SCH (11:35)
[2022-02-24] MEDS: TAMSULOSIN HCL 0.4 MG CAP PO SCH (14:14)
[2022-02-24] MEDS: MEROPENEM 500 MG in DEXTROSE 5%-WATER 100 ML IVPB SCH (20:41)
[2022-02-24] MEDS ORDERED: HYDROCORTISONE SOD SUCCINATE 100 MG/2 ML VIAL IVPUSH SCH (22:00)
[2022-02-24] MEDS: ATORVASTATIN CA 10 MG TABLET (FP) PO SCH (22:25)
[2022-02-24] MEDS: PATIENT'S OWN MEDICATION (NON-FORMULARY) (Bimatoprost [Lumigan] 1 DROP) OU SCH (22:45)
[2022-02-25] MEDS: DORZOLAMIDE 2% HCL OPHTHALMIC SOLUTION 10 ML BOTTLE OU SCH ×3 (06:09→21:27)
[2022-02-25] MEDS: BRIMONIDINE TARTRATE 0.2% OPHTHALMIC 5 ML BOTTLE OU SCH ×3 (06:10→21:27)
[2022-02-25] MEDS: PILOCARPINE 2% OPHTHALMIC SOLUTION 15 ML BOTTLE OU SCH ×3 (06:10→21:26)
[2022-02-25] MEDS: INSULIN SLIDING SCALE (NOVOLOG) 1 VIAL SQ SCH ×4 (06:19→22:54)
[2022-02-25] MEDS: HEPARIN NA (PORCINE) 5,000 UNITS/ML 1ML VIAL SQ SCH ×2 (06:20→13:36)
[2022-02-25] MEDS: HYDROCORTISONE SOD SUCCINATE 100 MG/2 ML VIAL IVPUSH SCH ×2 (09:57→21:24)
[2022-02-25] MEDS: TAMSULOSIN HCL 0.4 MG CAP PO SCH (09:57)
[2022-02-25] MEDS: MEROPENEM 500 MG in DEXTROSE 5%-WATER 100 ML IVPB SCH (09:57)
[2022-02-25] MEDS: PANTOPRAZOLE SODIUM 40 MG VIAL IVPUSH SCH (09:57)
[2022-02-25 10:27] LABS: BASO % 0.2 % (0-2.0); EOS % 4.6 % (0-4.5); HEMATOCRIT 28.5 % (35.4-49); HEMOGLOBIN 9.4 GM/dL (11.7-16.9); LYMPH % 9.5 % (8-40); MCH 28.2 pg (25.7-33.7); MCHC 33.1 g/dl (32.0-35.9); MEAN CELL VOLUME 84.9 fl (80-96); MEAN PLT VOLUME 8.5 fl (7.5-11.1); MONO % 5.6 % (3.8-10.2); NEUT % 80.1 % (42.8-82.8); PLATELET COUNT 130 10^3/uL (134-434); RBC 3.35 M/mm3 (4.00-5.60); RDW 17.7 % (11.9-15.9)
[2022-02-25 11:31] LABS: ALBUMIN 2.4 g/dl (3.4-5.0); BILIRUBIN,TOTAL 0.3 mg/dL (0.2-1); CALCIUM 8.6 mg/dL (8.5-10.1); CREATININE 4.8 mg/dL (0.55-1.3); MAGNESIUM 2.2 mg/dL (1.8-2.4); PHOSPHOROUS 5.3 mg/dL (2.5-4.9); TOT PROT 5.9 g/dl (6.4-8.2)
[2022-02-25] MEDS ORDERED: HYDROCORTISONE SOD SUCCINATE 100 MG/2 ML VIAL IVPUSH SCH (15:05)
[2022-02-25 15:10] LABS: EPI CELLS 7 /uL (0-25.1); HYALINE CASTS 13 /uL (0-3.1); URINE APPEARANCE CLOUDY; URINE BILIRUBIN 1+ (NEGATIVE); URINE COLOR RED; URINE GLUCOSE (UA) NEGATIVE (NEGATIVE); URINE KETONE NEGATIVE (NEGATIVE); URINE LEUK ESTERASE 3+ (NEGATIVE); URINE PROTEIN 3+ (NEGATIVE); URINE UROBILINOGEN 0.2 mg/dL (0.2-1.0); URINE WBC 3089 /uL (0-25.8)
[2022-02-25 15:18] LABS: URINE RBC 40714 /uL (0-23.9)
[2022-02-25] MEDS: MINERAL OIL/PET HY-PHL TOPICAL OINTMENT 454 GM JAR TP SCH ×2 (16:28→21:25)
[2022-02-25] MEDS: CEFTRIAXONE 1 GM in DEXTROSE 5%-WATER - 50 ML IVPB SCH (21:21)
[2022-02-25] MEDS: SENNOSIDES 8.6MG TABLET (FP) PO SCH (21:24)
[2022-02-25] MEDS: DOCUSATE SODIUM 100 MG CAPSULE (FP) PO SCH (21:24)
[2022-02-25] MEDS: ATORVASTATIN CA 10 MG TABLET (FP) PO SCH (21:24)
[2022-02-25] MEDS: PATIENT'S OWN MEDICATION (NON-FORMULARY) (Bimatoprost [Lumigan] 1 DROP) OU SCH (22:53)
[2022-02-26] MEDS: PILOCARPINE 2% OPHTHALMIC SOLUTION 15 ML BOTTLE OU SCH ×3 (05:25→22:22)
[2022-02-26] MEDS: BRIMONIDINE TARTRATE 0.2% OPHTHALMIC 5 ML BOTTLE OU SCH ×3 (05:26→22:20)
[2022-02-26] MEDS: DORZOLAMIDE 2% HCL OPHTHALMIC SOLUTION 10 ML BOTTLE OU SCH ×3 (05:26→22:22)
[2022-02-26] MEDS: INSULIN SLIDING SCALE (NOVOLOG) 1 VIAL SQ SCH ×4 (06:29→22:25)
[2022-02-26] MEDS: TAMSULOSIN HCL 0.4 MG CAP PO SCH (09:17)
[2022-02-26 10:30] LABS: BASO % 0.3 % (0-2.0); EOS % 5.3 % (0-4.5); HEMATOCRIT 25.8 % (35.4-49); HEMOGLOBIN 8.4 GM/dL (11.7-16.9); LYMPH % 11.8 % (8-40); MCH 27.6 pg (25.7-33.7); MCHC 32.6 g/dl (32.0-35.9); MEAN CELL VOLUME 84.7 fl (80-96); MEAN PLT VOLUME 8.4 fl (7.5-11.1); MONO % 5.8 % (3.8-10.2); NEUT % 76.8 % (42.8-82.8); PLATELET COUNT 126 10^3/uL (134-434); RBC 3.05 M/mm3 (4.00-5.60); RDW 17.4 % (11.9-15.9); WHITE BLOOD COUNT 8.1 K/mm3 (4.0-10.0)
[2022-02-26] MEDS: SENNOSIDES 8.6MG TABLET (FP) PO SCH ×2 (10:33→22:18)
[2022-02-26] MEDS: HYDROCORTISONE SOD SUCCINATE 100 MG/2 ML VIAL IVPUSH SCH (10:33)
[2022-02-26] MEDS: DOCUSATE SODIUM 100 MG CAPSULE (FP) PO SCH ×2 (10:34→22:18)
[2022-02-26] MEDS: MINERAL OIL/PET HY-PHL TOPICAL OINTMENT 454 GM JAR TP SCH ×2 (10:34→22:19)
[2022-02-26] MEDS: PANTOPRAZOLE SODIUM 40 MG VIAL IVPUSH SCH (10:34)
[2022-02-26] MEDS: amLODIPine BESYLATE 5 MG TABLET (FP) PO SCH (10:38)
[2022-02-26 10:49] LABS: ALBUMIN 2.3 g/dl (3.4-5.0); CALCIUM 8.4 mg/dL (8.5-10.1); MAGNESIUM 2.2 mg/dL (1.8-2.4)
[2022-02-26 10:51] LABS: BLOOD UREA NITROGEN 92.6 mg/dL (7-18)
[2022-02-26 10:53] LABS: PHOSPHOROUS 5.6 mg/dL (2.5-4.9)
[2022-02-26 10:55] LABS: BILIRUBIN,TOTAL 0.3 mg/dL (0.2-1); TOT PROT 5.7 g/dl (6.4-8.2)
[2022-02-26] MEDS: CEFTRIAXONE 1 GM in DEXTROSE 5%-WATER - 50 ML IVPB SCH (22:15)
[2022-02-26] MEDS: ATORVASTATIN CA 10 MG TABLET (FP) PO SCH (22:18)
[2022-02-26] MEDS: PATIENT'S OWN MEDICATION (NON-FORMULARY) (Bimatoprost [Lumigan] 1 DROP) OU SCH (22:24)
[2022-02-27] MEDS: PILOCARPINE 2% OPHTHALMIC SOLUTION 15 ML BOTTLE OU SCH ×3 (06:42→22:37)
[2022-02-27] MEDS: DORZOLAMIDE 2% HCL OPHTHALMIC SOLUTION 10 ML BOTTLE OU SCH ×3 (06:42→22:47)
[2022-02-27] MEDS: BRIMONIDINE TARTRATE 0.2% OPHTHALMIC 5 ML BOTTLE OU SCH ×3 (06:43→22:33)
[2022-02-27] MEDS: INSULIN SLIDING SCALE (NOVOLOG) 1 VIAL SQ SCH ×4 (06:43→22:46)
[2022-02-27] MEDS: amLODIPine BESYLATE 5 MG TABLET (FP) PO SCH (10:30)
[2022-02-27] MEDS: SENNOSIDES 8.6MG TABLET (FP) PO SCH ×2 (10:30→22:35)
[2022-02-27] MEDS: DOCUSATE SODIUM 100 MG CAPSULE (FP) PO SCH ×2 (10:30→22:35)
[2022-02-27] MEDS: TAMSULOSIN HCL 0.4 MG CAP PO SCH (10:30)
[2022-02-27] MEDS: MINERAL OIL/PET HY-PHL TOPICAL OINTMENT 454 GM JAR TP SCH ×2 (10:31→22:34)
[2022-02-27] MEDS: PANTOPRAZOLE SODIUM 40 MG VIAL IVPUSH SCH (10:31)
[2022-02-27 13:30] LABS: HEMATOCRIT 22.6 % (35.4-49); HEMOGLOBIN 7.4 GM/dL (11.7-16.9); MCH 27.6 pg (25.7-33.7); MCHC 32.7 g/dl (32.0-35.9); MEAN CELL VOLUME 84.5 fl (80-96); MEAN PLT VOLUME 7.9 fl (7.5-11.1); PLATELET COUNT 138 10^3/uL (134-434); RBC 2.67 M/mm3 (4.00-5.60); RDW 17.2 % (11.9-15.9)
[2022-02-27 13:48] LABS: CHLORIDE 114 mmol/L (98-107); SODIUM 143 mmol/L (136-145)
[2022-02-27 14:00] LABS: CALCIUM 8.7 mg/dL (8.5-10.1)
[2022-02-27 14:01] LABS: ALBUMIN 2.4 g/dl (3.4-5.0); ANION GAP 10 MMOL/L (8-16); CO2 19 mmol/L (21-32); GLUCOSE,RANDOM 150 mg/dL (74-106)
[2022-02-27 14:04] LABS: SGOT/AST 22 U/L (15-37)
[2022-02-27 14:06] LABS: BILIRUBIN,TOTAL 0.3 mg/dL (0.2-1); TOT PROT 5.6 g/dl (6.4-8.2)
[2022-02-27 14:08] LABS: ALK PHOS 55 U/L (45-117)
[2022-02-27 14:09] LABS: BLOOD UREA NITROGEN 105.3 mg/dL (7-18); SGPT/ALT 39 U/L (13-61)
[2022-02-27] MEDS ORDERED: FUROSEMIDE 40 MG/4 ML INJECTABLE VIAL IVPUSH ONE (19:54)
[2022-02-27] MEDS: PATIENT'S OWN MEDICATION (NON-FORMULARY) (Bimatoprost [Lumigan] 1 DROP) OU SCH (22:34)
[2022-02-27] MEDS: ATORVASTATIN CA 10 MG TABLET (FP) PO SCH (22:35)
[2022-02-27] MEDS: CEFTRIAXONE 1 GM in DEXTROSE 5%-WATER - 50 ML IVPB SCH (23:44)
[2022-02-28] MEDS: BRIMONIDINE TARTRATE 0.2% OPHTHALMIC 5 ML BOTTLE OU SCH ×3 (06:40→21:30)
[2022-02-28] MEDS: PILOCARPINE 2% OPHTHALMIC SOLUTION 15 ML BOTTLE OU SCH ×3 (06:41→21:30)
[2022-02-28] MEDS: DORZOLAMIDE 2% HCL OPHTHALMIC SOLUTION 10 ML BOTTLE OU SCH ×3 (06:41→21:30)
[2022-02-28] MEDS: INSULIN SLIDING SCALE (NOVOLOG) 1 VIAL SQ SCH ×4 (06:41→21:34)
[2022-02-28] MEDS: SENNOSIDES 8.6MG TABLET (FP) PO SCH ×2 (10:07→21:25)
[2022-02-28] MEDS: amLODIPine BESYLATE 5 MG TABLET (FP) PO SCH (10:07)
[2022-02-28] MEDS: PANTOPRAZOLE SODIUM 40 MG VIAL IVPUSH SCH (10:07)
[2022-02-28] MEDS: TAMSULOSIN HCL 0.4 MG CAP PO SCH (10:07)
[2022-02-28] MEDS: DOCUSATE SODIUM 100 MG CAPSULE (FP) PO SCH ×2 (10:07→21:25)
[2022-02-28] MEDS: MINERAL OIL/PET HY-PHL TOPICAL OINTMENT 454 GM JAR TP SCH ×2 (10:08→21:30)
[2022-02-28 10:31] LABS: HEMATOCRIT 22.4 % (35.4-49); HEMOGLOBIN 7.2 GM/dL (11.7-16.9); MCH 27.3 pg (25.7-33.7); MCHC 31.9 g/dl (32.0-35.9); MEAN CELL VOLUME 85.4 fl (80-96); MEAN PLT VOLUME 7.9 fl (7.5-11.1); PLATELET COUNT 121 10^3/uL (134-434); RBC 2.62 M/mm3 (4.00-5.60); RDW 17.9 % (11.9-15.9); WHITE BLOOD COUNT 8.4 K/mm3 (4.0-10.0)
[2022-02-28 10:48] LABS: CALCIUM 8.9 mg/dL (8.5-10.1)
[2022-02-28 10:49] LABS: ALBUMIN 2.4 g/dl (3.4-5.0); BLOOD UREA NITROGEN 103.1 mg/dL (7-18)
[2022-02-28 10:52] LABS: CREATININE 4.9 mg/dL (0.55-1.3)
[2022-02-28 10:53] LABS: BILIRUBIN,TOTAL 0.3 mg/dL (0.2-1); TOT PROT 5.5 g/dl (6.4-8.2)
[2022-02-28 14:34] VITALS: BMI 26.1
[2022-02-28] MEDS: CEFTRIAXONE 1 GM in DEXTROSE 5%-WATER - 50 ML IVPB SCH (21:25)
[2022-02-28] MEDS: ATORVASTATIN CA 10 MG TABLET (FP) PO SCH (21:25)
[2022-02-28] MEDS: PATIENT'S OWN MEDICATION (NON-FORMULARY) (Bimatoprost [Lumigan] 1 DROP) OU SCH (21:30)
[2022-03-01] MEDS: BRIMONIDINE TARTRATE 0.2% OPHTHALMIC 5 ML BOTTLE OU SCH ×3 (06:34→22:45)
[2022-03-01] MEDS: PILOCARPINE 2% OPHTHALMIC SOLUTION 15 ML BOTTLE OU SCH ×3 (06:34→22:47)
[2022-03-01] MEDS: INSULIN SLIDING SCALE (NOVOLOG) 1 VIAL SQ SCH ×4 (06:34→22:49)
[2022-03-01] MEDS: DORZOLAMIDE 2% HCL OPHTHALMIC SOLUTION 10 ML BOTTLE OU SCH ×3 (06:34→22:47)
[2022-03-01] MEDS: SENNOSIDES 8.6MG TABLET (FP) PO SCH ×2 (10:48→22:40)
[2022-03-01] MEDS: amLODIPine BESYLATE 5 MG TABLET (FP) PO SCH (10:48)
[2022-03-01] MEDS: TAMSULOSIN HCL 0.4 MG CAP PO SCH (10:48)
[2022-03-01] MEDS: MULTIVITAMINS (DAILY MVI) TABLET (FP) PO SCH (10:48)
[2022-03-01] MEDS: AMINO ACIDS/PROTEIN HYDROLYS 30 ML LIQUID.PKT PO SCH (10:49)
[2022-03-01] MEDS: MINERAL OIL/PET HY-PHL TOPICAL OINTMENT 454 GM JAR TP SCH ×2 (10:49→22:49)
[2022-03-01] MEDS: PANTOPRAZOLE SODIUM 40 MG VIAL IVPUSH SCH (10:50)
[2022-03-01 11:26] LABS: HEMATOCRIT 20.5 % (35.4-49); MCH 27.7 pg (25.7-33.7); MCHC 32.7 g/dl (32.0-35.9); MEAN CELL VOLUME 84.9 fl (80-96); MEAN PLT VOLUME 7.9 fl (7.5-11.1); PLATELET COUNT 111 10^3/uL (134-434); RBC 2.42 M/mm3 (4.00-5.60); RDW 18.1 % (11.9-15.9); WHITE BLOOD COUNT 8.2 K/mm3 (4.0-10.0)
[2022-03-01 11:39] LABS: CALCIUM 9.1 mg/dL (8.5-10.1)
[2022-03-01 11:40] LABS: ALBUMIN 2.6 g/dl (3.4-5.0); BLOOD UREA NITROGEN 93.6 mg/dL (7-18)
[2022-03-01 11:43] LABS: CREATININE 4.7 mg/dL (0.55-1.3)
[2022-03-01 11:45] LABS: BILIRUBIN,TOTAL 0.4 mg/dL (0.2-1)
[2022-03-01 11:45] LABS: HEMOGLOBIN 6.7 GM/dL (11.7-16.9)
[2022-03-01] MEDS: DOCUSATE SODIUM 100 MG CAPSULE (FP) PO SCH ×2 (11:55→22:40)
[2022-03-01] MEDS: FUROSEMIDE 40 MG TABLET (FP) PO SCH (12:23)
[2022-03-01] MEDS: HEPARIN NA (PORCINE) 5,000 UNITS/ML 1ML VIAL SQ SCH (16:46)
[2022-03-01] MEDS: ATORVASTATIN CA 10 MG TABLET (FP) PO SCH (22:40)
[2022-03-01] MEDS: CEFTRIAXONE 1 GM in DEXTROSE 5%-WATER - 50 ML IVPB SCH (22:43)
[2022-03-01] MEDS: PATIENT'S OWN MEDICATION (NON-FORMULARY) (Bimatoprost [Lumigan] 1 DROP) OU SCH (22:47)
[2022-03-02] MEDS: INSULIN SLIDING SCALE (NOVOLOG) 1 VIAL SQ SCH ×4 (06:49→21:39)
[2022-03-02] MEDS: BRIMONIDINE TARTRATE 0.2% OPHTHALMIC 5 ML BOTTLE OU SCH ×3 (06:52→21:37)
[2022-03-02] MEDS: PILOCARPINE 2% OPHTHALMIC SOLUTION 15 ML BOTTLE OU SCH ×3 (06:52→21:37)
[2022-03-02] MEDS: DORZOLAMIDE 2% HCL OPHTHALMIC SOLUTION 10 ML BOTTLE OU SCH ×3 (06:53→21:37)
[2022-03-02] MEDS: TAMSULOSIN HCL 0.4 MG CAP PO SCH (08:18)
[2022-03-02] MEDS: AMINO ACIDS/PROTEIN HYDROLYS 30 ML LIQUID.PKT PO SCH (08:20)
[2022-03-02] MEDS: FUROSEMIDE 40 MG TABLET (FP) PO SCH (10:07)
[2022-03-02 10:43] LABS: HEMATOCRIT 23.5 % (35.4-49); HEMOGLOBIN 7.8 GM/dL (11.7-16.9); MCH 28.5 pg (25.7-33.7); MCHC 33.2 g/dl (32.0-35.9); MEAN PLT VOLUME 7.8 fl (7.5-11.1); PLATELET COUNT 116 10^3/uL (134-434); RBC 2.74 M/mm3 (4.00-5.60); WHITE BLOOD COUNT 10.8 K/mm3 (4.0-10.0)
[2022-03-02] MEDS: PANTOPRAZOLE SODIUM 40 MG VIAL IVPUSH SCH (11:03)
[2022-03-02] MEDS: SENNOSIDES 8.6MG TABLET (FP) PO SCH ×2 (11:04→21:39)
[2022-03-02] MEDS: DOCUSATE SODIUM 100 MG CAPSULE (FP) PO SCH ×2 (11:04→21:39)
[2022-03-02] MEDS: MULTIVITAMINS (DAILY MVI) TABLET (FP) PO SCH (11:04)
[2022-03-02] MEDS: amLODIPine BESYLATE 5 MG TABLET (FP) PO SCH (11:04)
[2022-03-02 11:05] LABS: BLOOD UREA NITROGEN 86.1 mg/dL (7-18); CALCIUM 8.8 mg/dL (8.5-10.1)
[2022-03-02 11:06] LABS: ALBUMIN 2.6 g/dl (3.4-5.0)
[2022-03-02 11:08] LABS: CREATININE 4.4 mg/dL (0.55-1.3)
[2022-03-02 11:10] LABS: BILIRUBIN,TOTAL 0.3 mg/dL (0.2-1); TOT PROT 6.1 g/dl (6.4-8.2)
[2022-03-02 11:42] LABS: HEMATOCRIT 24.3 % (35.4-49); MCH 28.3 pg (25.7-33.7); MCHC 32.7 g/dl (32.0-35.9); MEAN CELL VOLUME 86.4 fl (80-96); PLATELET COUNT 117 10^3/uL (134-434); RBC 2.82 M/mm3 (4.00-5.60); RDW 17.6 % (11.9-15.9)
[2022-03-02 11:56] LABS: ALBUMIN 2.6 g/dl (3.4-5.0); BLOOD UREA NITROGEN 86.1 mg/dL (7-18)
[2022-03-02 11:59] LABS: CREATININE 4.6 mg/dL (0.55-1.3)
[2022-03-02 12:00] LABS: BILIRUBIN,TOTAL 0.4 mg/dL (0.2-1)
[2022-03-02 12:01] LABS: TOT PROT 6.2 g/dl (6.4-8.2)
[2022-03-02] MEDS ORDERED: POTASSIUM CHLORIDE TABS 10 MEQ TABLET.ER (FP) PO ONE (16:32)
[2022-03-02] MEDS: MEGESTROL ACETATE 400 MG/10 ML UNIT DOSE CUP PO SCH (17:21)
[2022-03-02] MEDS: MINERAL OIL/PET HY-PHL TOPICAL OINTMENT 454 GM JAR TP SCH ×2 (17:23→21:36)
[2022-03-02] MEDS: CEFTRIAXONE 1 GM in DEXTROSE 5%-WATER - 50 ML IVPB SCH (21:38)
[2022-03-02] MEDS: ATORVASTATIN CA 10 MG TABLET (FP) PO SCH (21:39)
[2022-03-02] MEDS: PATIENT'S OWN MEDICATION (NON-FORMULARY) (Bimatoprost [Lumigan] 1 DROP) OU SCH (21:41)
[2022-03-03] MEDS: DORZOLAMIDE 2% HCL OPHTHALMIC SOLUTION 10 ML BOTTLE OU SCH ×3 (06:22→22:34)
[2022-03-03] MEDS: BRIMONIDINE TARTRATE 0.2% OPHTHALMIC 5 ML BOTTLE OU SCH ×3 (06:22→22:28)
[2022-03-03] MEDS: PILOCARPINE 2% OPHTHALMIC SOLUTION 15 ML BOTTLE OU SCH ×3 (06:22→22:32)
[2022-03-03] MEDS: INSULIN SLIDING SCALE (NOVOLOG) 1 VIAL SQ SCH ×4 (06:26→22:31)
[2022-03-03] MEDS: TAMSULOSIN HCL 0.4 MG CAP PO SCH (10:01)
[2022-03-03] MEDS: SENNOSIDES 8.6MG TABLET (FP) PO SCH ×2 (10:01→22:30)
[2022-03-03] MEDS: PANTOPRAZOLE SODIUM 40 MG VIAL IVPUSH SCH (10:01)
[2022-03-03] MEDS: MULTIVITAMINS (DAILY MVI) TABLET (FP) PO SCH (10:01)
[2022-03-03] MEDS: AMINO ACIDS/PROTEIN HYDROLYS 30 ML LIQUID.PKT PO SCH (10:01)
[2022-03-03] MEDS: MINERAL OIL/PET HY-PHL TOPICAL OINTMENT 454 GM JAR TP SCH ×2 (10:01→22:29)
[2022-03-03] MEDS: DOCUSATE SODIUM 100 MG CAPSULE (FP) PO SCH ×2 (10:01→22:30)
[2022-03-03] MEDS: amLODIPine BESYLATE 5 MG TABLET (FP) PO SCH (10:01)
[2022-03-03] MEDS: MEGESTROL ACETATE 400 MG/10 ML UNIT DOSE CUP PO SCH (10:02)
[2022-03-03 10:05] LABS: HEMATOCRIT 25.6 % (35.4-49); HEMOGLOBIN 8.5 GM/dL (11.7-16.9); MCH 28.1 pg (25.7-33.7); MCHC 33.1 g/dl (32.0-35.9); MEAN CELL VOLUME 84.9 fl (80-96); PLATELET COUNT 145 10^3/uL (134-434); RBC 3.02 M/mm3 (4.00-5.60); RDW 17.7 % (11.9-15.9); WHITE BLOOD COUNT 15.3 K/mm3 (4.0-10.0)
[2022-03-03 10:26] LABS: ALBUMIN 2.9 g/dl (3.4-5.0); BLOOD UREA NITROGEN 82.9 mg/dL (7-18); CALCIUM 9.3 mg/dL (8.5-10.1)
[2022-03-03 10:29] LABS: CREATININE 4.7 mg/dL (0.55-1.3)
[2022-03-03 10:30] LABS: BILIRUBIN,TOTAL 0.5 mg/dL (0.2-1); TOT PROT 6.6 g/dl (6.4-8.2)
[2022-03-03] MEDS ORDERED: EPOETIN ALFA-EPBX 20,000 UNIT/ML VIAL SQ ONE (13:00)
[2022-03-03] MEDS ORDERED: INSULIN REGULAR HUMAN 100 UNITS/ML *VIAL SQ ONE (16:43)
[2022-03-03] MEDS: INSULIN (LEVEMIR) 100 UNITS/ML UNITS SQ SCH (22:30)
[2022-03-03] MEDS: ATORVASTATIN CA 10 MG TABLET (FP) PO SCH (22:30)
[2022-03-03] MEDS: CEFTRIAXONE 1 GM in DEXTROSE 5%-WATER - 50 ML IVPB SCH (22:33)
[2022-03-03] MEDS: PATIENT'S OWN MEDICATION (NON-FORMULARY) (Bimatoprost [Lumigan] 1 DROP) OU SCH (22:36)
[2022-03-04] MEDS: BRIMONIDINE TARTRATE 0.2% OPHTHALMIC 5 ML BOTTLE OU SCH ×3 (06:30→22:10)
[2022-03-04] MEDS: PILOCARPINE 2% OPHTHALMIC SOLUTION 15 ML BOTTLE OU SCH ×3 (06:31→22:32)
[2022-03-04] MEDS: DORZOLAMIDE 2% HCL OPHTHALMIC SOLUTION 10 ML BOTTLE OU SCH ×3 (06:31→22:11)
[2022-03-04] MEDS: INSULIN SLIDING SCALE (NOVOLOG) 1 VIAL SQ SCH ×4 (06:43→22:24)
[2022-03-04 09:34] LABS: HEMATOCRIT 24.4 % (35.4-49); HEMOGLOBIN 7.8 GM/dL (11.7-16.9); MCH 27.9 pg (25.7-33.7); MCHC 32.2 g/dl (32.0-35.9); MEAN CELL VOLUME 86.8 fl (80-96); MEAN PLT VOLUME 8.4 fl (7.5-11.1); PLATELET COUNT 132 10^3/uL (134-434); RBC 2.81 M/mm3 (4.00-5.60); RDW 18.4 % (11.9-15.9); WHITE BLOOD COUNT 13.3 K/mm3 (4.0-10.0)
[2022-03-04] MEDS: MULTIVITAMINS (DAILY MVI) TABLET (FP) PO SCH (09:45)
[2022-03-04] MEDS: TAMSULOSIN HCL 0.4 MG CAP PO SCH (09:45)
[2022-03-04] MEDS: DOCUSATE SODIUM 100 MG CAPSULE (FP) PO SCH ×2 (09:45→22:15)
[2022-03-04] MEDS: SENNOSIDES 8.6MG TABLET (FP) PO SCH ×2 (09:45→22:11)
[2022-03-04] MEDS: AMINO ACIDS/PROTEIN HYDROLYS 30 ML LIQUID.PKT PO SCH (09:45)
[2022-03-04] MEDS: amLODIPine BESYLATE 5 MG TABLET (FP) PO SCH (09:45)
[2022-03-04] MEDS: MEGESTROL ACETATE 400 MG/10 ML UNIT DOSE CUP PO SCH (09:47)
[2022-03-04] MEDS: MINERAL OIL/PET HY-PHL TOPICAL OINTMENT 454 GM JAR TP SCH ×2 (09:48→22:10)
[2022-03-04 10:05] LABS: ALBUMIN 2.6 g/dl (3.4-5.0); BLOOD UREA NITROGEN 83.2 mg/dL (7-18)
[2022-03-04 10:08] LABS: CREATININE 4.4 mg/dL (0.55-1.3)
[2022-03-04 10:09] LABS: BILIRUBIN,TOTAL 0.4 mg/dL (0.2-1); TOT PROT 6.3 g/dl (6.4-8.2)
[2022-03-04] MEDS: PANTOPRAZOLE SODIUM 40 MG VIAL IVPUSH SCH ×2 (11:38→22:11)
[2022-03-04] MEDS ORDERED: INSULIN (NOVOLOG) ASPART 100 UNITS/ML 10ML VIAL ONE (12:07)
[2022-03-04] MEDS: PATIENT'S OWN MEDICATION (NON-FORMULARY) (Bimatoprost [Lumigan] 1 DROP) OU SCH (22:10)
[2022-03-04] MEDS: INSULIN (LEVEMIR) 100 UNITS/ML UNITS SQ SCH (22:10)
[2022-03-04] MEDS: ATORVASTATIN CA 10 MG TABLET (FP) PO SCH (22:11)
[2022-03-05] MEDS: INSULIN SLIDING SCALE (NOVOLOG) 1 VIAL SQ SCH ×4 (06:00→22:55)
[2022-03-05] MEDS: PILOCARPINE 2% OPHTHALMIC SOLUTION 15 ML BOTTLE OU SCH ×3 (06:00→22:40)
[2022-03-05] MEDS: DORZOLAMIDE 2% HCL OPHTHALMIC SOLUTION 10 ML BOTTLE OU SCH ×3 (06:00→22:41)
[2022-03-05] MEDS: BRIMONIDINE TARTRATE 0.2% OPHTHALMIC 5 ML BOTTLE OU SCH ×3 (06:00→22:40)
[2022-03-05] MEDS ORDERED: INSULIN (LEVEMIR) 100 UNITS/ML UNITS SQ SCH ×2 (07:34→22:00)
[2022-03-05] MEDS: MEGESTROL ACETATE 400 MG/10 ML UNIT DOSE CUP PO SCH (10:24)
[2022-03-05] MEDS: DOCUSATE SODIUM 100 MG CAPSULE (FP) PO SCH ×2 (10:24→22:38)
[2022-03-05] MEDS: AMINO ACIDS/PROTEIN HYDROLYS 30 ML LIQUID.PKT PO SCH (10:24)
[2022-03-05] MEDS: SENNOSIDES 8.6MG TABLET (FP) PO SCH ×2 (10:24→22:38)
[2022-03-05] MEDS: MINERAL OIL/PET HY-PHL TOPICAL OINTMENT 454 GM JAR TP SCH ×2 (10:24→22:40)
[2022-03-05] MEDS: PANTOPRAZOLE SODIUM 40 MG VIAL IVPUSH SCH ×2 (10:24→22:41)
[2022-03-05] MEDS: FUROSEMIDE 40 MG TABLET (FP) PO SCH (10:24)
[2022-03-05] MEDS: TAMSULOSIN HCL 0.4 MG CAP PO SCH (10:24)
[2022-03-05] MEDS: MULTIVITAMINS (DAILY MVI) TABLET (FP) PO SCH (10:24)
[2022-03-05] MEDS: amLODIPine BESYLATE 5 MG TABLET (FP) PO SCH (10:24)
[2022-03-05 12:49] LABS: HEMATOCRIT 26.5 % (35.4-49); HEMOGLOBIN 8.5 GM/dL (11.7-16.9); MCHC 31.9 g/dl (32.0-35.9); MEAN CELL VOLUME 87.5 fl (80-96); PLATELET COUNT 154 10^3/uL (134-434); RBC 3.02 M/mm3 (4.00-5.60); RDW 18.9 % (11.9-15.9); WHITE BLOOD COUNT 15.5 K/mm3 (4.0-10.0)
[2022-03-05 13:10] LABS: CALCIUM 9.2 mg/dL (8.5-10.1)
[2022-03-05 13:11] LABS: ALBUMIN 2.6 g/dl (3.4-5.0); BLOOD UREA NITROGEN 85.4 mg/dL (7-18)
[2022-03-05 13:14] LABS: CREATININE 4.6 mg/dL (0.55-1.3)
[2022-03-05 13:16] LABS: BILIRUBIN,TOTAL 0.4 mg/dL (0.2-1); TOT PROT 6.5 g/dl (6.4-8.2)
[2022-03-05] MEDS: ATORVASTATIN CA 10 MG TABLET (FP) PO SCH (22:38)
[2022-03-05] MEDS: PATIENT'S OWN MEDICATION (NON-FORMULARY) (Bimatoprost [Lumigan] 1 DROP) OU SCH (22:40)
[2022-03-06] MEDS: DORZOLAMIDE 2% HCL OPHTHALMIC SOLUTION 10 ML BOTTLE OU SCH ×3 (07:05→22:00)
[2022-03-06] MEDS: INSULIN SLIDING SCALE (NOVOLOG) 1 VIAL SQ SCH ×4 (07:05→23:24)
[2022-03-06] MEDS: PILOCARPINE 2% OPHTHALMIC SOLUTION 15 ML BOTTLE OU SCH ×3 (07:06→21:59)
[2022-03-06] MEDS: BRIMONIDINE TARTRATE 0.2% OPHTHALMIC 5 ML BOTTLE OU SCH ×3 (07:06→21:58)
[2022-03-06] MEDS: AMINO ACIDS/PROTEIN HYDROLYS 30 ML LIQUID.PKT PO SCH (09:16)
[2022-03-06] MEDS: TAMSULOSIN HCL 0.4 MG CAP PO SCH (09:16)
[2022-03-06] MEDS: MINERAL OIL/PET HY-PHL TOPICAL OINTMENT 454 GM JAR TP SCH ×2 (09:16→22:24)
[2022-03-06] MEDS: DOCUSATE SODIUM 100 MG CAPSULE (FP) PO SCH ×2 (09:18→21:42)
[2022-03-06] MEDS: amLODIPine BESYLATE 5 MG TABLET (FP) PO SCH (09:18)
[2022-03-06] MEDS: PANTOPRAZOLE SODIUM 40 MG VIAL IVPUSH SCH ×2 (09:18→22:14)
[2022-03-06] MEDS: MEGESTROL ACETATE 400 MG/10 ML UNIT DOSE CUP PO SCH (09:18)
[2022-03-06] MEDS: MULTIVITAMINS (DAILY MVI) TABLET (FP) PO SCH (09:19)
[2022-03-06] MEDS: SENNOSIDES 8.6MG TABLET (FP) PO SCH ×2 (09:19→21:41)
[2022-03-06 09:20] LABS: BASO % 0.2 % (0-2.0); EOS % 0.3 % (0-4.5); HEMATOCRIT 28.3 % (35.4-49); HEMOGLOBIN 8.9 GM/dL (11.7-16.9); LYMPH % 3.3 % (8-40); MCH 27.8 pg (25.7-33.7); MCHC 31.5 g/dl (32.0-35.9); MEAN CELL VOLUME 88.3 fl (80-96); MEAN PLT VOLUME 9.4 fl (7.5-11.1); MONO % 6.6 % (3.8-10.2); NEUT % 89.6 % (42.8-82.8); PLATELET COUNT 149 10^3/uL (134-434); RBC 3.21 M/mm3 (4.00-5.60); RDW 19.3 % (11.9-15.9); WHITE BLOOD COUNT 24.2 K/mm3 (4.0-10.0)
[2022-03-06 09:46] LABS: CALCIUM 9.5 mg/dL (8.5-10.1)
[2022-03-06 09:47] LABS: ALBUMIN 2.6 g/dl (3.4-5.0); BLOOD UREA NITROGEN 91.8 mg/dL (7-18)
[2022-03-06 09:51] LABS: BILIRUBIN,TOTAL 0.6 mg/dL (0.2-1); CREATININE 4.9 mg/dL (0.55-1.3); PHOSPHOROUS 4.1 mg/dL (2.5-4.9); TOT PROT 6.6 g/dl (6.4-8.2)
[2022-03-06] MEDS ORDERED: MIRTAZAPINE 15 MG TABLET (FP) PO SCH (10:00)
[2022-03-06 10:13] LABS: ANISOCYTOSIS 1+; MACROCYTOSIS 0; PLATELET ESTIMATE DECREASED
[2022-03-06 13:28] LABS: HEMATOCRIT 27.9 % (35.4-49); HEMOGLOBIN 8.8 GM/dL (11.7-16.9); MCH 27.6 pg (25.7-33.7); MCHC 31.4 g/dl (32.0-35.9); MEAN PLT VOLUME 9.3 fl (7.5-11.1); PLATELET COUNT 170 10^3/uL (134-434); RBC 3.17 M/mm3 (4.00-5.60); RDW 19.6 % (11.9-15.9); WHITE BLOOD COUNT 27.9 K/mm3 (4.0-10.0)
[2022-03-06 14:57] LABS: ANISOCYTOSIS 1+; MACROCYTOSIS 0; PLATELET ESTIMATE NORMAL
[2022-03-06] MEDS ORDERED: INSULIN (LEVEMIR) 100 UNITS/ML UNITS SQ SCH (16:22)
[2022-03-06] MEDS ORDERED: SODIUM CHLORIDE 0.9% 500 ML INFUS.BAG IV ONE (18:53)
[2022-03-06] MEDS ORDERED: PIPERACILLIN/TAZOB 2.25 GM 2.25 GM in DEXTROSE 5%-WATER - 50 ML IVPB SCH ×2 (19:15→20:45)
[2022-03-06 21:41] LABS: CALCIUM 8.9 mg/dL (8.5-10.1)
[2022-03-06] MEDS: ATORVASTATIN CA 10 MG TABLET (FP) PO SCH (21:41)
[2022-03-06 21:42] LABS: ALBUMIN 2.4 g/dl (3.4-5.0); BLOOD UREA NITROGEN 97.9 mg/dL (7-18)
[2022-03-06 21:45] LABS: CREATININE 5.3 mg/dL (0.55-1.3)
[2022-03-06 21:46] LABS: BILIRUBIN,TOTAL 0.5 mg/dL (0.2-1); TOT PROT 6.5 g/dl (6.4-8.2)
[2022-03-06] MEDS: PATIENT'S OWN MEDICATION (NON-FORMULARY) (Bimatoprost [Lumigan] 1 DROP) OU SCH (21:59)
[2022-03-06 22:04] LABS: LACTIC ACID 2.9 mmol/L (0.4-2.0)
[2022-03-06] MEDS ORDERED: PHENYLEPHRINE NS PREMIX 50,000 MCG/500 ML BAG CVP SCH ×2 (23:45)
[2022-03-06] MEDS ORDERED: PHENYLEPHRINE HCL 10 MG/1 ML SINGLE DOSE VIAL ONE (23:47)
[2022-03-07 00:15] LABS: ARTERIAL BLD GAS O2 SATURATION 95.1 % (95-98); ARTERIAL BLOOD GAS BASE EXCESS -7.7 mmol/L (-2-2); ARTERIAL BLOOD GAS PO2 82.5 mmHg (80-100); ARTERIAL BLOOD GAS pH 7.294 (7.350-7.450)
[2022-03-07] MEDS ORDERED: NOREPINEPHRINE BITARTRATE 4,000 MCG in DEXTROSE 5%-WATER - 496 ML IV SCH (01:45)
[2022-03-07] MEDS ORDERED: ALBUMIN HUMAN 5% 250 ML IV SOLUTION IV ONE (01:53)
[2022-03-07] MEDS ORDERED: ALBUMIN HUMAN 5% 500 ML IV SOLUTION IV ONE (02:00)
[2022-03-07] MEDS ORDERED: PIPERACILLIN/TAZOB 2.25 GM 2.25 GM in DEXTROSE 5%-WATER - 50 ML IVPB SCH ×2 (02:00→19:00)
[2022-03-07 04:02] LABS: LACTIC ACID 3.5 mmol/L (0.4-2.0)
[2022-03-07] MEDS: PIPERACILLIN/TAZOB 2.25 GM 2.25 GM in DEXTROSE 5%-WATER - 50 ML IVPB SCH ×2 (04:10→13:20)
[2022-03-07] MEDS: BRIMONIDINE TARTRATE 0.2% OPHTHALMIC 5 ML BOTTLE OU SCH ×3 (06:39→23:18)
[2022-03-07] MEDS: PILOCARPINE 2% OPHTHALMIC SOLUTION 15 ML BOTTLE OU SCH ×3 (06:39→23:18)
[2022-03-07] MEDS: DORZOLAMIDE 2% HCL OPHTHALMIC SOLUTION 10 ML BOTTLE OU SCH ×3 (06:40→23:19)
[2022-03-07] MEDS: INSULIN SLIDING SCALE (NOVOLOG) 1 VIAL SQ SCH ×4 (06:44→23:16)
[2022-03-07 07:28] LABS: HEMATOCRIT 23.4 % (35.4-49); HEMOGLOBIN 7.4 GM/dL (11.7-16.9); MCHC 31.8 g/dl (32.0-35.9); MEAN PLT VOLUME 9.2 fl (7.5-11.1); PLATELET COUNT 193 10^3/uL (134-434); RBC 2.66 M/mm3 (4.00-5.60); RDW 19.6 % (11.9-15.9); WHITE BLOOD COUNT 27.9 K/mm3 (4.0-10.0)
[2022-03-07 07:54] LABS: ALBUMIN 2.8 g/dl (3.4-5.0); BLOOD UREA NITROGEN 100.3 mg/dL (7-18)
[2022-03-07 07:55] LABS: CREATININE 5.5 mg/dL (0.55-1.3)
[2022-03-07 07:57] LABS: BILIRUBIN,TOTAL 0.8 mg/dL (0.2-1); TOT PROT 6.2 g/dl (6.4-8.2)
[2022-03-07] MEDS ORDERED: AMINO ACIDS/PROTEIN HYDROLYS 30 ML LIQUID.PKT PO SCH (08:00)
[2022-03-07 08:29] LABS: LACTIC ACID 2.9 mmol/L (0.4-2.0)
[2022-03-07] MEDS ORDERED: PANTOPRAZOLE SODIUM 40 MG VIAL IVPUSH SCH (10:00)
[2022-03-07] MEDS ORDERED: MEGESTROL ACETATE 400 MG/10 ML UNIT DOSE CUP PO SCH (10:00)
[2022-03-07] MEDS ORDERED: MULTIVITAMINS (DAILY MVI) TABLET (FP) PO SCH (10:00)
[2022-03-07] MEDS ORDERED: FUROSEMIDE 40 MG TABLET (FP) PO SCH (10:00)
[2022-03-07] MEDS: MINERAL OIL/PET HY-PHL TOPICAL OINTMENT 454 GM JAR TP SCH ×3 (10:09→23:23)
[2022-03-07] MEDS: MUPIROCIN 2% TOPICAL OINTMENT FOR DECOLONIZATION NS SCH ×2 (10:10→23:22)
[2022-03-07] MEDS: DOCUSATE SODIUM 100 MG CAPSULE (FP) PO SCH ×2 (11:12→23:21)
[2022-03-07] MEDS: SENNOSIDES 8.6MG TABLET (FP) PO SCH ×2 (11:13→23:23)
[2022-03-07] MEDS ORDERED: VASOPRESSIN 40 UNITS/100 ML BAG IV SCH (15:15)
[2022-03-07] MEDS ORDERED: SODIUM CHLORIDE 250 ML IV PRN (16:07)
[2022-03-07] MEDS ORDERED: PANTOPRAZOLE SODIUM 80 MG in SODIUM CHLORIDE 100 ML IVPB SCH (17:15)
[2022-03-07] MEDS ORDERED: VANCOMYCIN 1 GM/200 ML PREMIX BAG IVPB STA (18:11)
[2022-03-07] MEDS ORDERED: NOREPINEPHRINE BITARTRATE 4 MG/4 ML ML IV ONE (18:13)
[2022-03-07] MEDS ORDERED: NOREPINEPHRINE BITARTRATE 16,000 MCG in SODIUM CHLORIDE 484 ML IV SCH (18:15)
[2022-03-07] MEDS ORDERED: NOREPINEPHRINE 0.9 % NACL 8 MG/250 ML BAG IVPB SCH (18:28)
[2022-03-07] MEDS ORDERED: PATIENT'S OWN MEDICATION (NON-FORMULARY) (Bimatoprost [Lumigan] 1 DROP) OU SCH (22:00)
[2022-03-07] MEDS ORDERED: MIRTAZAPINE 15 MG TABLET (FP) PO SCH (22:00)
[2022-03-07] MEDS ORDERED: INSULIN (LEVEMIR) 100 UNITS/ML UNITS SQ SCH (22:00)
[2022-03-07] MEDS ORDERED: ATORVASTATIN CA 10 MG TABLET (FP) PO SCH (22:00)
[2022-03-07] MEDS ORDERED: CHLORHEXIDINE GLUCONATE 4% CLEANSER FOR DECOLONIZATION TP SCH (22:00)
[2022-03-08 00:31] VITALS: BP 42/31; PULSE 77; RESP 11; TEMP 99.8
== END 2022-03-08 03:16 | disposition expired | DRG 871 ==
LOC: JER 19:35 → JERBED 23:39 → JICU 02-23 00:21 → J8W 02-24 16:46 → JICU 03-06 23:09
PROVIDERS: ADMIT Internal Medicine Pulmonary Disease; ATTEND Internal Medicine Pulmonary Disease
PROC: 30233N1 Transfusion of Nonautologous Red Blood Cells into Peripheral Vein, Percutaneous Approach (ICD-10-PCS; 2022-03-01)
PROC: 05HC33Z Insertion of Infusion Device into Left Basilic Vein, Percutaneous Approach (ICD-10-PCS; principal; 2022-03-07)
PROC: B54NZZA Ultrasonography of Left Upper Extremity Veins, Guidance (ICD-10-PCS; 2022-03-07)
PROC: 02H633Z Insertion of Infusion Device into Right Atrium, Percutaneous Approach (ICD-10-PCS; 2022-03-07)
PROC: B548ZZA Ultrasonography of Superior Vena Cava, Guidance (ICD-10-PCS; 2022-03-07)
PROC: 03HY32Z Insertion of Monitoring Device into Upper Artery, Percutaneous Approach (ICD-10-PCS; 2022-03-07)
PROC: 4A133B1 Monitoring of Arterial Pressure, Peripheral, Percutaneous Approach (ICD-10-PCS; 2022-03-07)
PROC: 4A133J1 Monitoring of Arterial Pulse, Peripheral, Percutaneous Approach (ICD-10-PCS; 2022-03-07)
DX: A41.59 Other Gram-negative sepsis (principal); J96.00 Acute respiratory failure, unspecified whether with hypoxia or hypercapnia; N17.0 Acute kidney failure with tubular necrosis; R65.21 Severe sepsis with septic shock; N18.4 Chronic kidney disease, stage 4 (severe); I13.0 Hypertensive heart and chronic kidney disease with heart failure and stage 1 through stage 4 chronic kidney disease, or unspecified chronic kidney disease; N13.6 Pyonephrosis; I50.32 Chronic diastolic (congestive) heart failure; E87.0 Hyperosmolality and hypernatremia; D62 Acute posthemorrhagic anemia; G72.81 Critical illness myopathy; E87.20 Acidosis, unspecified; G93.49 Other encephalopathy; I25.10 Atherosclerotic heart disease of native coronary artery without angina pectoris; Z95.0 Presence of cardiac pacemaker; N40.0 Benign prostatic hyperplasia without lower urinary tract symptoms; E11.22 Type 2 diabetes mellitus with diabetic chronic kidney disease; E86.0 Dehydration; Z79.84 Long term (current) use of oral hypoglycemic drugs; D69.6 Thrombocytopenia, unspecified; D64.9 Anemia, unspecified; R31.0 Gross hematuria; N31.9 Neuromuscular dysfunction of bladder, unspecified
CPT/HCPCS: 36415; 36430; 36600; 70450-TC; 71045-TC-FY; 71250-TC; 74176-TC; 76775-TC; 78708-TC; 80053; 80076; 81003; 82140; 82272; 82550; 82570; 82607; 82728; 82746; 82803; 82962; 83540; 83550; 83605; 83735; 83935; 84100; 84155; 84156; 84165; 84300; 84436; 84439; 84443; 84484; 85025; 85027; 85610; 85730; 86803; 86850; 86900; 86901; 86922; 87040; 87086; 87186; 87340; 87804; 93005; 93010; 97116-GP; 97161-GP; 99291; 99292; A9562; C9803-CS; J1644; J3490; P9058; U0003; U0005